=== PATIENT | female | born 1935 | race Caucasian/White ===

== ENCOUNTER → 2017-05-06 13:05 | Outpatient (CLI) | payer MEDICARE, OTHER, SELFPAY ==
--- NOTE | 2017-05-06 13:09 | HPBI_ITS ---
MAMMOGRAPHY - BILATERAL SCREENING REASON FOR EXAM: Female, 82 years old. Routine annual screening examination. PERTINENT HISTORY: Non-contributory. TECHNIQUE: Digital bilateral breast suzie (3D mammographic acquisition) in the CC and MLO projections. 2-D mediolateral oblique (MLO) and craniocaudad (CC) views of both breasts were obtained. CAD: Full Field Digital Mammography with Computer Added Detection was performed. COMPARISON: Comparison is made with prior study dated April 23, 2016 and April 26, 2014. FINDINGS: Breast Composition: There are scattered areas of fibroglandular density. There are no dominant masses or suspicious calcifications. Stable benign-appearing bilateral axillary lymph nodes. No other significant abnormalities are identified. There has been no significant change since the prior study. HPBI/SCREENING MAMM (CAD), BILAT IMPRESSION: Stable bilateral screening mammogram. Yearly follow-up mammogram recommended. (A) ASSESSMENT CATEGORY: BIRADS Category 2: Benign. A letter regarding these results will be sent to the patient by the facility within 30 days. Approximately 10% of breast cancers are not detected by mammography. A normal mammogram should not delay biopsy of a clinically suspicious abnormality. [id number] Electronically Signed: Ronni Snell MD at 8:43 EST Tel [phone], Service support ,
--- NOTE | 2017-05-06 13:09 | HPBD_ITS ---
STUDY: DUAL ENERGY X-RAY ABSORPTIOMETRY / DXA REASON FOR EXAM: Female, 82 years old. The patient is postmenopausal. Loss of height of 3 inches. TECHNIQUE: Bone Mineral Density (BMD) measurements of lumbar spine and bilateral hips were obtained. COMPARISON: Comparison is made with prior examination dated February 07, 2015. FINDINGS: Lumbar Spine (L1-L4): g/cm2 (1.632) / T-score (3.6) / Z-score (5.4) Findings are suggestive of normal bone density with a low fracture risk. Left Femur Total: g/cm2 (0.976) / T-score (-0.2) / Z-score (1.7) Left Femoral Neck: g/cm2 (0.826) / T-score (-1.5) / Z-score (0.6) Right Femur Total: g/cm2 (0.972) / T-score (-0.3) / Z-score (1.7) Right Femoral Neck: g/cm2 (0.848) / T-score (-1.4) / Z-score (0.8) The T-Scores on the most recent prior examination were: Lumbar Spine (L1-L4): There has been worsening of bone density since the previous examination. Left Femur Total: which represents a worsening of 0.3%. Right Femur Total: which represents a worsening of 0.6%. HPBD/Dexa Bone Density Study (HP) IMPRESSION: The patient is considered osteopenic as outlined below according to World Amrik Organization (WHO) criteria with a moderate fracture risk. There has been worsening of bone density since the previous examination. Reference Information: The T-score is the number of standard deviations above or below the standard which is normal for young adults at their peak bone mineral density. The World Health Organization (WHO) interprets the T-scores as follows: Above -1 Normal bone density Between -1 and -2.5 Osteopenia Equal to / or below -2.5 Osteoporosis As a practical clinical guideline, osteopenia may be graded as follows: Mild -1 through -1.5 Moderate -1.6 through -2.0 Severe -2.1 through -2.4 The Z-score is the number of standard deviations above or below age-matched controls. A Z-score of less than -1.5 would be considered abnormal. References: 1. NIH Osteoporosis and Related Bone Diseases http://www.osteo.org 2. International Society for Clinical Densitometry http://www.iscd.org 3. National Osteoporosis Foundation http://www.nof.org Electronically Signed: Ronni Snell MD at 19:56 EST Tel [phone], Service support ,
== END ==
PROVIDERS: Family Provider Internal Medicine; PCP Internal Medicine; Visit Provider Internal Medicine
DX: Z12.31 Encounter for screening mammogram for malignant neoplasm of breast (principal); M85.80 Other specified disorders of bone density and structure, unspecified site; Z78.0 Asymptomatic menopausal state
CPT/HCPCS: 77063; 77067; 77080

== ENCOUNTER → 2017-06-16 06:05 | Outpatient (CLI) | payer MEDICARE, OTHER, SELFPAY ==
--- NOTE | 2017-06-16 18:43 | STRESSREP ---
Stress Test Report Exercise myocardial perfusion stress test. 82-year-old lady with a history of chest pain. Stress protocol: Resting EKG demonstrates sinus rhythm with a rate of 63 bpm normal intervals and noted resting blood pressure is 144/80 mmHg. The patient exercised according to the regular Guillermo protocol for total duration of 4 minutes completing stage I of the Guillermo protocol. The maximum heart rate attained was 131 bpm which was 93% of maximum predicted heart rate the maximum workload attained was 5.8 metabolic equivalents. The patient maintained sinus rhythm throughout the recording with occasional premature ventricular complexes noted patient developed shortness of breath as well as leg discomfort. The peak blood pressure was 200/86 mmHg. Rate pressure product was 22,200. Myocardial perfusion protocol. 11.9 mCi of technetium 99m sestamibi was injected at rest. The patient exercised for total duration of 4 minutes and at peak exercise 36.0 mCi of technetium 99m sestamibi was injected stress images were obtained stress and rest images were reconstructed and compared in the short axis vertical long and horizontal long axis. Gated images were also obtained. Perfusion SPECT analysis. Review of the images demonstrate normal uptake of tracer noted in all areas of the myocardium. The resting images similarly demonstrate normal uptake of tracer noted in all areas of the myocardium. No areas of reversibility are noted suggest ischemia. No previous infarct is noted. Gated SPECT analysis: The gated ejection fraction is noted to be 77%. Conclusion: Normal exercise myocardial perfusion stress test at a low to moderate workload. Preserved ejection fraction. Hypertensive response to exercise.
== END ==
PROVIDERS: Family Provider Internal Medicine; PCP Internal Medicine; Visit Provider Physician Assistant Medical
DX: I25.10 Atherosclerotic heart disease of native coronary artery without angina pectoris (principal); I10 Essential (primary) hypertension; E78.5 Hyperlipidemia, unspecified; R06.00 Dyspnea, unspecified
CPT/HCPCS: 78452; 93017; A9500; A4216

== ENCOUNTER → 2018-04-06 11:16 | Outpatient (CLI) | payer MEDICARE, OTHER, SELFPAY ==
[2018-01-27 10:16] VITALS: BMI 36.8
--- NOTE | 2018-04-06 11:24 | RAD_ITS ---
STUDY: X-RAY - RIGHT KNEE REASON FOR EXAM: Female, 82 years old. Increasing knee pain TECHNIQUE: 4 view(s) of the knee. COMPARISON: None. FINDINGS: There is demineralization of the visualized distal femur. There is demineralization of the tibia and fibula. Normal proximal tibiofibular articulation. There is moderate degenerative arthrosis of the medial femorotibial compartment with moderate joint space narrowing. There is mild degenerative arthrosis of the lateral femorotibial compartment. Normal patellofemoral articulation. The soft tissue structures are unremarkable. RAD/Knee 4 or More Views IMPRESSION: Degenerative arthrosis. Osteopenia. Electronically Signed: Juliet Rodgers MD at 20:02 EST Tel , Service support ,
== END ==
PROVIDERS: Family Provider Internal Medicine; PCP Internal Medicine; Referring Provider Internal Medicine; Visit Provider Internal Medicine
DX: M25.561 Pain in right knee (principal)
CPT/HCPCS: 73564

== ENCOUNTER → 2018-05-15 13:12 | Outpatient (CLI) | payer MEDICARE, OTHER, SELFPAY ==
--- NOTE | 2018-05-15 13:18 | BI_ITS ---
MAMMOGRAPHY - BILATERAL SCREENING REASON FOR EXAM: Female, 83 years old. Routine annual screening examination. PERTINENT HISTORY: Non-contributory. TECHNIQUE: Digital bilateral breast suzie (3D mammographic acquisition) in the CC and MLO projections. 2-D mediolateral oblique (MLO) and craniocaudad (CC) views of both breasts were obtained. CAD: Full Field Digital Mammography with Computer Added Detection was performed. COMPARISON: Comparison is made with prior study of May 06, 2017 and April 23, 2016. FINDINGS: Breast Composition: There are scattered areas of fibroglandular density. There are no dominant masses or suspicious calcifications. Stable benign-appearing bilateral axillary lymph nodes. No other significant abnormalities are identified. There has been no significant change since the prior study. BI/SCREENING MAMM (CAD), BILAT IMPRESSION: Stable bilateral screening mammogram. Yearly follow-up mammogram recommended. (A) ASSESSMENT CATEGORY: BIRADS Category 1: Negative. A letter regarding these results will be sent to the patient by the facility within 30 days. Approximately 10% of breast cancers are not detected by mammography. A normal mammogram should not delay biopsy of a clinically suspicious abnormality. [id number] Electronically Signed: Ronni Snell, at 15:35 EST , Service support ,
== END ==
PROVIDERS: Family Provider Internal Medicine; PCP Internal Medicine; Referring Provider Internal Medicine; Visit Provider Internal Medicine
DX: Z12.31 Encounter for screening mammogram for malignant neoplasm of breast (principal)
CPT/HCPCS: 77063; 77067

== ENCOUNTER → 2019-05-18 13:51 | Outpatient (CLI) | payer MEDICARE, OTHER, SELFPAY ==
[2019-01-26 08:31] VITALS: BMI 35.9
--- NOTE | 2019-05-18 13:56 | BI_ITS ---
MAMMOGRAPHY - BILATERAL SCREENING REASON FOR EXAM: Female, 84 years old. Routine annual screening examination. PERTINENT HISTORY: Non-contributory. TECHNIQUE: Digital bilateral breast veena (3D mammographic acquisition) in the CC and MLO projections. 2-D mediolateral oblique (MLO) and craniocaudad (CC) views of both breasts were obtained. CAD: Full Field Digital Mammography with Computer Added Detection was performed. COMPARISON: Comparison is made with prior examination dated May 15, 2018 and May 06, 2017. FINDINGS: Breast Composition: There are scattered areas of fibroglandular density. There are no dominant masses or suspicious calcifications. Stable asymmetry of breast tissue where more breast tissue is seen in the retroareolar region of the left breast as compared to the right side. Stable scattered calcifications. Stable benign-appearing bilateral axillary. No other significant abnormalities are identified. There has been no significant change since the prior study. BI/SCREEN MAMM (CAD) W/VEENA BILAT IMPRESSION: Stable bilateral screening mammogram. Yearly follow-up mammogram recommended. (A) ASSESSMENT CATEGORY: BIRADS Category 2: Benign. A letter regarding these results will be sent to the patient by the facility within 30 days. Approximately 10% of breast cancers are not detected by mammography. A normal mammogram should not delay biopsy of a clinically suspicious abnormality. [id number] Electronically Signed: Ronni Snell, at 15:39 EST , Service support ,
--- NOTE | 2019-05-18 14:02 | BD_ITS ---
STUDY: DUAL ENERGY X-RAY ABSORPTIOMETRY / DXA REASON FOR EXAM: Female, 84 years old. Age of clay- 54. Pat is 198.7# and 62.25 and quot; a loss of 3.75 and quot; per pat. Past hx of taking HRT. Takes synthroid and a multi-vit. Does not exercise. TECHNIQUE: Bone Mineral Density (BMD) measurements of lumbar spine and bilateral hips were obtained. COMPARISON: Comparison is made with prior study dated May 06, 2017. FINDINGS: Lumbar Spine (L1-L4): g/cm2 (1.281) / T-score (1.0) / Z-score (2.8) Findings are suggestive of normal bone density with a low fracture risk. Left Femur Total: g/cm2 (0.934) / T-score (-0.6) / Z-score (1.5) Left Femoral Neck: g/cm2 (0.783) / T-score (-1.8) / Z-score (0.4) Right Femur Total: g/cm2 (0.944) / T-score (-0.5) / Z-score (1.6) Right Femoral Neck: g/cm2 (0.841) / T-score (-1.4) / Z-score (0.8) The T-Scores on the most recent prior examination were: Lumbar Spine (L1-L4): There has been improvement of bone density since the previous examination. Left Femur Total: which represents a worsening of 4.3%. Right Femur Total: which represents a worsening of 2.9%. BD/Dexa Bone Density Study IMPRESSION: The patient is considered osteopenic as outlined below according to World Amrik Organization (WHO) criteria with a moderate fracture risk. There has been worsening of bone density since the previous examination. Reference Information: The T-score is the number of standard deviations above or below the standard which is normal for young adults at their peak bone mineral density. The World Health Organization (WHO) interprets the T-scores as follows: Above -1 Normal bone density Between -1 and -2.5 Osteopenia Equal to / or below -2.5 Osteoporosis As a practical clinical guideline, osteopenia may be graded as follows: Mild -1 through -1.5 Moderate -1.6 through -2.0 Severe -2.1 through -2.4 The Z-score is the number of standard deviations above or below age-matched controls. A Z-score of less than -1.5 would be considered abnormal. References: 1. NIH Osteoporosis and Related Bone Diseases http://www.osteo.org 2. International Society for Clinical Densitometry http://www.iscd.org 3. National Osteoporosis Foundation http://www.nof.org Electronically Signed: Ronni Snell, at 14:14 EST , Service support ,
== END ==
PROVIDERS: PCP Internal Medicine; Referring Provider Internal Medicine; Visit Provider Internal Medicine
DX: Z12.31 Encounter for screening mammogram for malignant neoplasm of breast (principal); Z78.0 Asymptomatic menopausal state; M85.80 Other specified disorders of bone density and structure, unspecified site
CPT/HCPCS: 77063; 77067; 77080

== ENCOUNTER → 2019-11-16 10:00 | Outpatient (CLI) | payer MEDICARE, OTHER, SELFPAY ==
[2019-08-26 10:47] VITALS: BMI 35.2
--- NOTE | 2019-11-16 10:01 | VDLE_ITS ---
Reason For Study: Swelling Procedure LEFT Exam performed in department. GSV is normal. A preliminary report was called and/or faxed CFV is compressible, spontaneous, phasic, to Alphonso. competent, and demonstrates normal augmentation. FV is compressible, spontaneous, phasic, competent and demonstrates normal augmentation. POP V is compressible, spontaneous, phasic, competent and demonstrates normal augmentation. T/P Trunk is compressible. PTV is compressible. LT PerV is compressible. Interpretation Summary Deep veins of the left lower extremity are patent and compressible segmentally. There is no evidence of left lower extremity deep vein thrombosis. Valvular competence appears intact within the proximal deep venous system on the left . The left great saphenous vein appears patent and compressible segmentally. Ordering Physician: Emy Werner Referring Physician: Emy Werner Performed By: Janny Sewell RVT and Student
== END ==
PROVIDERS: PCP Internal Medicine; Referring Provider Internal Medicine; Visit Provider Internal Medicine
DX: M79.89 Other specified soft tissue disorders (principal)
CPT/HCPCS: 93971

== ENCOUNTER → 2020-08-31 09:56 | Outpatient (CLI) | payer MEDICARE, OTHER, SELFPAY ==
[2019-08-26 10:47] VITALS: BMI 35.2
--- NOTE | 2020-08-31 10:04 | VDLE_ITS ---
Reason For Study: swelling RIGHT LEFT CFV is compressible, spontaneous, phasic, GSV is normal. competent and demonstrates normal CFV is compressible, spontaneous, phasic, augmentation. competent, and demonstrates normal Procedure augmentation. This is a venous duplex using B-mode, color FV is compressible, spontaneous, phasic, flow and spectral Doppler. competent and demonstrates normal Exam performed in department. augmentation. The exam was diagnostic. POP V is compressible, spontaneous, phasic, A preliminary report was called and/or faxed competent and demonstrates normal to Dr. Werner. augmentation. T/P Trunk is compressible. PTV is compressible. LT PerV is compressible. VL/Venous Duplex US, Unilateral Interpretation Summary Deep veins of the left lower extremity are patent and compressible segmentally. There is no evidence of left lower extremity deep vein thrombosis. Valvular competence appears intac t within the proximal deep venous system on the left . The left great saphenous vein appears patent a nd compressible segmentally. Ordering Physician: Emy Werner Performed By: Sebastian Hoffman RVT and Student
== END ==
PROVIDERS: PCP Internal Medicine; Referring Provider Internal Medicine; Visit Provider Internal Medicine
DX: M79.89 Other specified soft tissue disorders (principal)
CPT/HCPCS: 93971

== ENCOUNTER 2021-04-18 12:18 | Outpatient (CLI) | payer MEDICARE, OTHER, SELFPAY ==
[2021-04-24 22:07] LABS: Immunoglobulin A 273 mg/dL (64-422); Immunoglobulin E 14 IU/mL (6-495); Immunoglobulin G 926 mg/dL (586-1602); Immunoglobulin M 95 mg/dL (26-217); PROEL- A/G Ratio 1.1 (0.7-1.7); PROEL- Albumin 3.7 g/dL (2.9-4.4); PROEL- Alpha-1 Globulin 0.2 g/dL (0.0-0.4); PROEL- Beta Globulin 1.1 g/dL (0.7-1.3); PROEL- Globulin, Total 3.3 g/dL (2.2-3.9)
[2021-04-25 13:41] LABS: Thyroid Peroxidase AB < 8 IU/mL (0-34)
== END 2021-04-18 23:59 | disposition short-term general hospital (02) ==
LOC: MTLAB 12:19
PROVIDERS: PCP Internal Medicine; Referring Provider Dermatology; Visit Provider Dermatology
DX: L98.5 Mucinosis of the skin (principal); L40.8 Other psoriasis
CPT/HCPCS: 36415; 82784; 82785; 84165; 86376

== ENCOUNTER 2021-05-19 09:39 | Outpatient (CLI) | payer MEDICARE, OTHER, SELFPAY ==
--- NOTE | 2021-05-19 09:42 | CT_ITS ---
INDICATION: SINUSITIS EXAMINATION: CT SINUSES - CT Sinuses W/O Contrast Injection TECHNIQUE: Helically acquired images were obtained of the paranasal sinuses. A radiation dose optimization technique was used for this scan. IV Contrast dosage and agent: None. COMPARISON: None. FINDINGS: FRONTAL SINUSES AND RECESSES: Clear. ETHMOID AIR CELLS: Clear. MAXILLARY SINUSES: Minimal mucosal thickening right maxillary sinus inferior wall. Left maxillary sinus is normal. OSTIOMEATAL COMPLEXES: Clear and normally formed. SPHENOID SINUSES: Subcentimeter, convex soft tissue density suggesting mucous retention cyst right sphenoid sinus. Sphenoid sinuses are otherwise clear. SPHENOETHMOIDAL RECESSES: Clear. ANCILLARY FINDINGS: NASAL TURBINATES: Unremarkable. NASAL SEPTUM: Midline. ORBITS: Unremarkable. VISUALIZED DENTITION: No periodontal osseous erosion. ANTERIOR CRANIAL FOSSA: Unremarkable. Atherosclerosis cavernous carotid arteries and left intracranial vertebral artery. Moderate facet arthropathy proximal cervical spine bilaterally. CT/Sinus/Facial Bone IMPRESSION: Minimal right maxillary sinus mucosal thickening and small mucous retention cyst right sphenoid sinus. Nonobstructive paranasal sinus anatomy without acute sinusitis. Electronically Signed: Samuel Wong DO at 20:40 EST ,
== END 2021-05-19 23:59 | disposition home or self-care (01) ==
LOC: CT 09:39
PROVIDERS: PCP Internal Medicine; Visit Provider Internal Medicine
DX: J32.9 Chronic sinusitis, unspecified (principal)
CPT/HCPCS: 70486

== ENCOUNTER → 2021-08-29 | Outpatient (CLI) | payer MEDICARE, OTHER, SELFPAY ==
--- NOTE | 2021-08-29 09:03 | BI_ITS ---
MAMMOGRAPHY - BILATERAL SCREENING REASON FOR EXAM: Female, 86 years old. Routine annual screening examination. PERTINENT HISTORY: Non-contributory. TECHNIQUE: Digital bilateral breast veena (3D mammographic acquisition) in the CC and MLO projections. 2-D mediolateral oblique (MLO) and craniocaudad (CC) views of both breasts were obtained. CAD: Full Field Digital Mammography with Computer Added Detection was performed. COMPARISON: Comparison is made with prior study dated 05/18/2019 and 05/15/2018. FINDINGS: Breast Composition: There are scattered areas of fibroglandular density. There are no dominant masses or suspicious calcifications. Stable asymmetry of breast tissue where more breast tissue is seen in the retroareolar region of the left breast as compared to the right side. Stable scattered calcifications in both breasts. No other significant abnormalities are identified. There has been no significant change since the prior study. BI/SCRN MAMM (CAD)W/VEENA BILAT IMPRESSION: Stable bilateral screening mammogram. Yearly follow-up mammogram recommended. (A) ASSESSMENT CATEGORY: BIRADS Category 2: Benign. A letter regarding these results will be sent to the patient by the facility within 30 days. Approximately 10% of breast cancers are not detected by mammography. A normal mammogram should not delay biopsy of a clinically suspicious abnormality. [id number] Electronically Signed: Ronni Snell MD at 10:39 EDT ,
--- NOTE | 2021-08-29 09:07 | BD_ITS ---
STUDY: DUAL ENERGY X-RAY ABSORPTIOMETRY / DXA REASON FOR EXAM: Female, 86 years old. M85.89. Patient is postmenopausal. TECHNIQUE: Bone Mineral Density (BMD) measurements of lumbar spine and bilateral hips were obtained. COMPARISON: Comparison is made with prior study of 05/18/2019. FINDINGS: Lumbar Spine (L1-L4): g/cm2 (1.199) / T-score (1.4) / Z-score (4.2) Findings are suggestive of normal bone density with a low fracture risk. Left Femur Total: g/cm2 (0.828) / T-score (-0.9) / Z-score (1.4) Left Femoral Neck: g/cm2 (0.576) / T-score (-2.5) / Z-score (0.0) Right Femur Total: g/cm2 (0.841) / T-score (-0.8) / Z-score (1.5) Right Femoral Neck: g/cm2 (0.700) / T-score (-1.3) / Z-score (1.1) The T-Scores on the most recent prior examination were: Lumbar Spine (L1-L4): There has been worsening of bone density since the previous examination. Left Femur Total: which represents a worsening of 4.8%. Right Femur Total: which represents a worsening of 4.8%. BD/Dexa Bone Density Study IMPRESSION: The patient is considered osteopenic as outlined below according to World Amrik Organization (WHO) criteria with a high fracture risk. There has been worsening of bone density since the previous examination. Reference Information: The T-score is the number of standard deviations above or below the standard which is normal for young adults at their peak bone mineral density. The World Health Organization (WHO) interprets the T-scores as follows: Above -1 Normal bone density Between -1 and -2.5 Osteopenia Equal to / or below -2.5 Osteoporosis As a practical clinical guideline, osteopenia may be graded as follows: Mild -1 through -1.5 Moderate -1.6 through -2.0 Severe -2.1 through -2.4 The Z-score is the number of standard deviations above or below age-matched controls. A Z-score of less than -1.5 would be considered abnormal. References: 1. NIH Osteoporosis and Related Bone Diseases www osteo.org 2. International Society for Clinical Densitometry www iscd.org 3. National Osteoporosis Foundation www nof.org Electronically Signed: Ronni Snell MD at 10:51 EDT ,
--- NOTE | 2021-08-29 09:30 | RAD_ITS ---
STUDY: X-RAY CHEST REASON FOR EXAM: Female, 86 years old. Fever and cough TECHNIQUE: PA and lateral views of the chest. COMPARISON: 07/20/2021 FINDINGS: Lungs are expanded with little significant interval change since the previous study. Since there is no interval change, findings are more suggestive of lingular scarring rather than superimposed infiltrate or atelectasis. No demonstrated effusion. The right lung is clear. Normal size heart. Normal mediastinum and emely. Normal visualized pulmonary arteries. Normal visualized aortic arch and descending thoracic aorta. There are diffuse degenerative changes of the visualized thoracic spine. There is degenerative osteoarthritis of the bilateral shoulders. There is no demonstrated abnormality of the visualized soft tissue structures of the upper abdomen. RAD/Chest PA and Lateral IMPRESSION: Likely lingular scarring rather than a superimposed infiltrate or atelectasis. There has been no interval change since the previous study. Electronically Signed: Toni Segura MD at 15:09 EDT ,
== END | disposition home or self-care (01) ==
PROVIDERS: PCP Internal Medicine; Referring Provider Internal Medicine; Visit Provider Internal Medicine
DX: Z12.31 Encounter for screening mammogram for malignant neoplasm of breast (principal); J18.9 Pneumonia, unspecified organism; M85.80 Other specified disorders of bone density and structure, unspecified site; Z78.0 Asymptomatic menopausal state
CPT/HCPCS: 71046; 77063; 77067; 77080

== ENCOUNTER → 2021-09-24 | Outpatient (CLI) | payer MEDICARE, OTHER, SELFPAY ==
--- NOTE | 2021-09-24 09:27 | CT_ITS ---
STUDY: CT CHEST WITHOUT CONTRAST REASON FOR EXAM: Female, 86 years old. COUGH RADIATION DOSAGE (If Supplied By Facility): CTDIvol = ( 12.71 ) mGy, DLP = ( 460.36 ) mGycm TECHNIQUE: Transaxial imaging was performed without the administration of intravenous contrast material. Multiplanar coronal and sagittal images were reformatted. Individualized dose optimization techniques were used for this CT. COMPARISON: Comparison is made with prior chest radiograph dated 08/29/2021. FINDINGS: CHEST Small bilateral benign-appearing axillary lymph nodes. There is a 1.2 cm x 1.8 cm mildly spiculated nodule in the posterior segment of the right lower lobe. Correlation with a PET scan is recommended. Mild scarring in the lingular segment of the left upper lobe. There is a 1.6 cm bulla in the anterior aspect of the left lower lobe. There is no demonstrated pleural abnormality. There are calcifications of the coronary arteries. Normal mediastinum. Normal hilar regions. Normal unenhanced pulmonary arteries. There is atherosclerotic calcification of the aortic arch with tortuosity and elongation of the aortic arch and descending thoracic aorta. There are multi-level degenerative changes of the thoracic spine. 50% loss of height of the L1 vertebrae. Large hiatal hernia. Scattered cysts in the liver. The largest cyst is in the posterior aspect of the dome of the liver measuring 3 cm x 3.[address]/Chest without Contrast IMPRESSION: 1.2 cm x 1.8 cm mildly spiculated nodule in the posterior segment of the right lower lobe. Correlation with a PET scan is recommended. Hepatic cysts. Large hiatal hernia. Electronically Signed: Ronni Snell MD at 12:41 EDT ,
== END | disposition home or self-care (01) ==
LOC: CT 08:49
PROVIDERS: PCP Internal Medicine; Referring Provider Internal Medicine; Visit Provider Internal Medicine
DX: R91.8 Other nonspecific abnormal finding of lung field (principal)
CPT/HCPCS: 71250

== ENCOUNTER → 2021-10-03 | Outpatient (CLI) | payer MEDICARE, OTHER, SELFPAY ==
--- NOTE | 2021-10-03 15:15 | PET_ITS ---
PROCEDURE: WHOLE BODY PET/CT SCAN, MID SKULL TO MID THIGH REASON FOR EXAM: Solitary pulmonary nodule COMPARISON EXAMINATION: 09/24/2021. TECHNIQUE: Following the intravenous administration of 12.45 mCi of F-18 FDG, multiplanar imaging acquisitions of the neck, chest, abdomen/pelvis to the mid thigh, obtained at 1 hour post radiopharmaceutical administration. Interpretation is with co-registeration of similar anatomic distribution of CT. Findings: Normal and physiologic distribution of radioisotope identified in the expected intensity of the hepatic and splenic parenchyma, urinary tract and gastrointestinal structures. There is gross anatomic distribution of the intracranial contents. INDEX LESION SIZE SUV INTERPRETATION: 1. 1.4 x 1.8 cm noncalcified nodule in the right posterior lower lobe on image 251 series 201 with abnormal FDG activity (SUV 5.5) correlates to nodule evident on recent chest CT. 2. Focal (1 cm) activity (SUV 5.7) of the proximal descending colon anterior (nondependent) wall is seen on image 149 of series 301, image 93 coronal fused images, and image [address] portion of the exam: The lungs are normal. There is no demonstrated pleural abnormality. Normal heart and pericardium. There are calcifications of the coronary arteries. Normal mediastinum. Normal hilar regions. Normal unenhanced pulmonary arteries. There is atherosclerotic calcification of the aortic arch with tortuosity and elongation of the aortic arch and descending thoracic aorta. Low density (photopenic) lesions of the liver likely represent cysts or hemangiomata. No required imaging follow-up needed given high likelihood of benign nature. Normal gallbladder and extrahepatic biliary system. Normal spleen. Normal pancreas. Normal bilateral adrenal glands. Simple cyst of the anterior right kidney. No required imaging follow-up needed given high likelihood of benign nature. No hydronephrosis. Moderate size hiatal hernia. Normal small intestine. There are multiple colonic diverticula consistent with diverticulosis. There is non-visualization of the appendix. There is diffuse atherosclerotic calcification of the abdominal aorta, without a demonstrated aneurysm. Normal inferior vena cava. Normal urinary bladder. Degenerative changes of the spine. No lytic or sclerotic bone lesions. PET/PET/CT Tumor Base -Thigh Init IMPRESSION: 1. ABNORMAL EXAMINATION. Right lower lobe nodule meets criteria for viable neoplasm. No demonstrated metastasis. 2. 1 cm focal FDG activity (higher than remainder colonic activity) in the anterior ascending colon wall. May represent adherent stool/physiologic activity versus focal inflammation, however, a focal neoplasm is possible. Colonoscopy recommended. 3. Chronic changes, as detailed above. Electronically Signed: Carlos Alberto Up MD ([place]) at 12:12 EDT ,
== END | disposition home or self-care (01) ==
LOC: ONC 15:08
PROVIDERS: PCP Internal Medicine; Referring Provider Internal Medicine; Visit Provider Internal Medicine
DX: R91.1 Solitary pulmonary nodule (principal)
CPT/HCPCS: 78815; A9552

== ENCOUNTER 2021-11-06 11:39 | Outpatient (CLI) | payer MEDICARE, OTHER, SELFPAY ==
[2021-11-06 15:36] LABS: Anion Gap 6 (5-15); BUN 11 mg/dL (7-18); Chloride 106 mmol/L (98-107); Creatinine, Serum 0.82 mg/dL (0.55-1.02); EST Glomerular Filtration Rate 70 mL/min (>60); Est Glom Filt Rate - Afr Amer 85 mL/min (>60); Sodium Level 139 mmol/L (136-145)
[2021-11-06 15:37] LABS: Prothrombin Time (Protime)PT. 12.9 SECONDS (11.7-14.9)
[2021-11-06 15:38] LABS: Partial Thromboplast Time 28.9 Seconds (24.1-36.2)
[2021-11-09 17:07] LABS: QNTFERON TB Mitogen Value > 10.00 IU/mL (.); QNTFERON TB Nil Value 0.02 IU/mL (.); QNTFERON TB1+ Ag Value 0.02 IU/mL (.); QNTFERON TB2+ Ag Value 0.02 IU/mL (.)
[2021-11-10 07:44] LABS: QNTIFERON TB Positive Criteria Negative (Negative)
== END 2021-11-06 23:59 | disposition home or self-care (01) ==
LOC: MTLAB 11:41
PROVIDERS: PCP Internal Medicine; Referring Provider Internal Medicine Pulmonary Disease; Visit Provider Internal Medicine Pulmonary Disease
DX: R91.1 Solitary pulmonary nodule (principal)
CPT/HCPCS: 36415; 80051; 82565; 84520; 85610; 85730; 86480

== ENCOUNTER → 2021-12-10 | Outpatient (CLI) | payer MEDICARE, OTHER, SELFPAY ==
[2021-12-10] VITALS (13 sets, daily range): BP systolic 103–140; BP diastolic 45–102; PULSE 56–72; RESP 12–25; TEMP 36.5; O2SAT 94–100; BMI 31.3
--- NOTE | 2021-12-10 | ASPIGT_PTH ---
PATIENT: KATE CRENSHAW LOC: [place] U#:[id number] AGE/SX: 86/F ROOM: RE12/10/[address]: Dr. Eric Moore MD : [id number] BED: DIS: 12/10/2021 SPEC #: [id number] RECD: 12/10/21 10:30 STATUS: ASHUTOSH REEctor #: [id number] THEODORA: 12/10/21 00:[address]: Eric Moore V DEPT: SURGICAL PATHOLOGY RECD BY: Svetlana Lozano ENTERED: 12/10/21 12:34 SP TYPE: ASP RAD OTHR DR: Dr. Emy Werner MD Tissues: Lung, NOS Procedures: FNA Specimen Adequacy Special Stain Group II Surgery Specimen Level IV Imprint (control) HEADER OPERATION: Right lung mass, CT-guided core biopsy PRE-OP DIAGNOSIS: Right lung mass TISSUE SUBMITTED: Right lung mass 20-gauge x4 MICROSCOPIC DIAGNOSIS Right lung mass, CT-guided core biopsy: Fragments of lung parenchymal tissue with focal pneumocyte-2 hyperplasia. Negative for malignancy. See comment. NIKOLAS:rikki 12/11/2021 COMMENT The specimen is evaluated at the time of biopsy by Dr. Overton. Immediate Evaluation = Mildly atypical cells noted. Correlation with clinical, radiologic findings and appropriate follow up are necessary. Re-biopsy is suggested if clinically indicated. Case has been reviewed in consultation with Dr. Espinoza who concurs with the above diagnosis. IDC:AM MICROSCOPIC DESCRIPTION Slides are reviewed. GROSS DESCRIPTION Received in fixative is one container labeled with the patient's name and designated right lung, CT-guided core biopsy. The specimen consists of multiple elongated fragments of vitale soft tissue that in aggregate measure 1.5 x 0.1 x 0.1 cm. The specimen is totally submitted in one cassette. Two touch imprints are prepared at the time of core biopsy. / NIKOLAS:rikki 12/10/2021 TC:5 CPT: 91352, 25348
[2021-12-10 08:52] LABS: Platelet Count 279 K/mm3 (150-450)
[2021-12-10 09:08] LABS: International Normalized Ratio 1.1; Partial Thromboplast Time 30.1 Seconds (24.1-36.2); Prothrombin Time (Protime)PT. 13.4 SECONDS (11.7-14.9)
[2021-12-10] MEDS: Midazolam 2 MG/2 ML Syringe IV (10:05)
--- NOTE | 2021-12-10 10:05 | CT_ITS ---
PROCEDURE: CT GUIDED CORE NEEDLE BIOPSY OF A right lower lobe LUNG LESION INDICATION: Female, 86 years old. R LOWER LUNG LOBE PHYSICIAN: Dr. HOWARD Christiansen CONSENT: Written informed consent was obtained having explained the risks, benefits and alternatives in detail with the patient who accepted the risks and agreed to proceed. Laboratory review and clinical assessment was performed. CONSCIOUS SEDATION PROTOCOL: The Drugs used were: 2 mg Versed, IV., and 50 mcg Fentanyl, IV. The sedation time was: 25 minutes. Conscious sedation was started at 10:05 AM and terminated at 10:30 AM. The conscious sedation protocol was independently monitored. RADIATION DOSAGE (If Supplied By Facility): CTDIvol = ( 18.8 ) mGy, DLP = ( 671.24 ) mGycm Individualized dose optimization techniques were used for this CT. TECHNIQUE: The patient was placed in the prone position. A noncontrast CT was performed to localize the lesion in the posterior medial segment of the right lower lobe . The skin surface was prepped and draped in a sterile fashion. 1% lidocaine was used for local anesthesia. Using CT guidance, a 20-gauge coaxial biopsy device was advanced to the periphery of the lesion. A total of 4 core specimens were obtained. The specimens were placed in a formalin solution. A post procedure CT demonstrated no adverse sequelae or pneumothorax. The patient tolerated the procedure well without adverse event. A negative biopsy does not exclude malignancy. Further imaging or clinical followup based on patient condition and degree of clinical suspicion for malignancy. Suggest rebiopsy, if biopsy results do not match with clinical scenario. CT/Biopsy/Inj or Needle Placement IMPRESSION: 1. CT directed core needle biopsy of the right lower lobe pulmonary nodule using CT image guidance with image documentation as described. Pathology results are pending. 2. Conscious Sedation protocol utilized with independent monitoring. Electronically Signed: Ronni Snell MD at 10:52 EDT ,
[2021-12-10] MEDS: fentaNYL 100 MCG/2 ML Ampul IV ×2 (10:08→10:22)
--- NOTE | 2021-12-10 10:15 | RAD_ITS ---
STUDY: X-RAY CHEST REASON FOR EXAM: Female, 86 years old. Pneumothorax -- Immediately post lung biopsy TECHNIQUE: AP inspiration and expiration views. COMPARISON: Comparison is made with prior study of 08/29/2021. FINDINGS: There is no evidence of pneumothorax following the right lung biopsy. RAD/Chest Insp/Exp 2 View IMPRESSION: No evidence of pneumothorax following the immediate postright lung biopsy. Electronically Signed: Ronni Snell MD at 10:50 EDT ,
[2021-12-10] MEDS: Lidocaine 2% (10 ml mdv) 10 ML Vial INFILT (10:20)
--- NOTE | 2021-12-10 12:45 | RAD_ITS ---
STUDY: X-RAY CHEST REASON FOR EXAM: Female, 86 years old. Pneumothorax -- 2 hours post lung biopsy TECHNIQUE: AP inspiration and expiration views. COMPARISON: Comparison is made with prior study done earlier in the day. FINDINGS: The patient is status post right lung biopsy. No evidence of pneumothorax on the delayed images. RAD/Chest Insp/Exp 2 View IMPRESSION: No evidence of pneumothorax. Electronically Signed: Ronni Snell MD at 13:35 EDT ,
== END | disposition home or self-care (01) ==
PROVIDERS: PCP Internal Medicine; Referring Provider Internal Medicine Pulmonary Disease; Visit Provider Internal Medicine Pulmonary Disease
DX: R91.1 Solitary pulmonary nodule (principal)
CPT/HCPCS: 32408; 36415; 71046; 77012; 85049; 85610; 85730; 88172; 88305; 88313; 99156; J7050; A4216; C2613

== ENCOUNTER → 2022-05-09 | Outpatient (CLI) | payer MEDICARE, OTHER, SELFPAY ==
--- NOTE | 2022-05-09 12:31 | CT_ITS ---
STUDY: CT CHEST WITHOUT CONTRAST REASON FOR EXAM: Female, 87 years old. LUNG NODULE RADIATION DOSAGE (If Supplied By Facility): CTDIvol = ( 10.21 ) mGy, DLP = ( 347.66 ) mGycm TECHNIQUE: Transaxial imaging was performed without the administration of intravenous contrast material. Multiplanar coronal and sagittal images were reformatted. Individualized dose optimization techniques were used for this CT. COMPARISON: Comparison is made with prior study dated 09/24/2021. FINDINGS: CHEST Stable small bilateral benign appearing axillary lymph nodes. Stable 1.6 cm x 1.5 cm satisfactory nodule in the posterior segment of the right lower lobe abutting the pleural surface. Stable mild degree of scarring in the lingular segment of the left upper lobe. Stable 1.6 cm bulla in the anterior aspect of the left lower lobe abutting the major fissure. There is no demonstrated pleural abnormality. There are calcifications of the coronary arteries. Normal mediastinum. Normal hilar regions. Normal unenhanced pulmonary arteries. There is atherosclerotic calcification of the aortic arch with tortuosity and elongation of the aortic arch and descending thoracic aorta. There are multi-level degenerative changes of the thoracic spine. 50% loss of height of the L1 vertebrae. Large hiatal hernia. Stable 3 cm x 3 cm lobulated cyst in the posterior aspect of the dome of the liver. CT/Chest without Contrast IMPRESSION: Stable examination. Electronically Signed: Ronni Snell MD at 14:08 EST ,
== END | disposition home or self-care (01) ==
PROVIDERS: PCP Internal Medicine; Visit Provider Internal Medicine Pulmonary Disease
DX: R91.1 Solitary pulmonary nodule (principal)
CPT/HCPCS: 71250

== ENCOUNTER → 2022-09-02 | Outpatient (CLI) | payer MEDICARE, OTHER, SELFPAY ==
--- NOTE | 2022-09-02 10:30 | BI_ITS ---
MAMMOGRAPHY - BILATERAL SCREENING REASON FOR EXAM: Female, 87 years old. Routine annual screening examination. PERTINENT HISTORY: Non-contributory. TECHNIQUE: Digital bilateral breast veena (3D mammographic acquisition) in the CC and MLO projections. 2-D mediolateral oblique (MLO) and craniocaudad (CC) views of both breasts were obtained. CAD: Full Field Digital Mammography with Computer Added Detection was performed. COMPARISON: Mammogram from 09/02/2022, 08/29/2021. FINDINGS: Breast Composition: There are scattered areas of fibroglandular density. There are no dominant masses or suspicious calcifications. Stable benign-appearing bilateral breast calcifications. No other significant abnormalities are identified. There has been no significant change since the prior study. BI/SCRN MAMM (CAD)W/VEENA BILAT IMPRESSION: Stable bilateral screening mammogram. Yearly follow-up mammogram recommended. (A) ASSESSMENT CATEGORY: BIRADS Category 2: Benign. A letter regarding these results will be sent to the patient by the facility within 30 days. Approximately 10% of breast cancers are not detected by mammography. A normal mammogram should not delay biopsy of a clinically suspicious abnormality. Electronically Signed: Guanaco Hough DO at 10:17 EDT ,
--- NOTE | 2022-09-02 14:18 | CT_ITS ---
EXAM: CT CHEST WITHOUT INTRAVENOUS CONTRAST CLINICAL INDICATION: Lung nodule, solitary TECHNIQUE: Helically acquired images were obtained of the chest without intravenous contrast. This CT exam was performed using one or more of the following dose reduction techniques: automated exposure control, adjustment of the mA and/or kV according to patient size, and/or use of iterative reconstruction technique. RADIATION DOSE: CTDIvol = 12.5 mGy, DLP = 440.28 mGy-cm COMPARISON: May 09, 2022. The prior exam was compared to September 24, 2021. FINDINGS: LUNGS AND PLEURAL SPACES: Stable size and configuration of nodule in the right lung base with gas in its anterior component thought to be in airway, encasing and airway branch, overall size roughly 1.6 cm x 1.5 cm by 1.4 cm, it was 1.6 cm x 1.6 cm x 1.4 cm. Mild bands of atelectasis and minimal groundglass opacity at the lung bases appears stable. No pleural effusion or thickening. HEART: See below. MEDIASTINUM: Stable large hiatal hernia, hernia roughly 1/2 of the stomach. No mediastinal or hilar adenopathy. Esophagus is unremarkable. THYROID: Unremarkable. No thyroid lesions. BONES/JOINTS: Mild degenerative spine changes. Stable compression deformity of L1 anterior body. No suspicious lytic or blastic abnormality. SOFT TISSUES: Breast are not fully included. VASCULATURE: Mild peripheral calcification of the aorta. Mild calcifications at the aortic valve leaflets. At least moderate calcification some coronary arteries, there is suspected coronary artery stent bilaterally. Thoracic aorta is non-dilated. LIVER: Cluster of 3 adjacent cysts in the posterior liver appears similar, overall confluent AP diameter roughly 3.6 cm. GALLBLADDER AND BILE DUCTS: Cholecystectomy clip is partially included. STOMACH AND BOWEL: Mild diverticulosis of the splenic flexure. CT/Chest without Contrast IMPRESSION: Stable exam. Stability of right basilar nodule for over 11 months. FOLLOW UP RECOMMENDATIONS: For low-risk or high-risk patients consider a follow-up chest CT at 12-18 months. If unchanged, no further follow-up. Electronically Signed: Carol Frank MD at 8:36 EDT ,
== END | disposition home or self-care (01) ==
LOC: OPBI 10:29
PROVIDERS: PCP Internal Medicine; Referring Provider Internal Medicine; Visit Provider Internal Medicine
DX: Z12.31 Encounter for screening mammogram for malignant neoplasm of breast (principal); R91.1 Solitary pulmonary nodule
CPT/HCPCS: 71250; 77063; 77067

== ENCOUNTER → 2023-01-02 | Outpatient (CLI) | payer MEDICARE, OTHER, SELFPAY ==
--- NOTE | 2023-01-02 09:52 | MRI_ITS ---
STUDY: MRI LUMBAR SPINE WITHOUT CONTRAST REASON FOR EXAM: Female, 87 years old. Degeneration of intervertebral disc, low back pain, difficulty walking TECHNIQUE: Standardized fat and water weighted pulse sequences were obtained in the sagittal and axial planes. COMPARISON: Lumbar spine radiographs 12/03/2021. FINDINGS: T10-T11: (Sagittal only). Normal endplates. Pronounced disc space height narrowing. Mild ventral extradural defect due to posterior bulging annulus. Normal central canal. Moderately pronounced stenosis of the left intervertebral neural foramen. Mild stenosis of the right intervertebral neural foramen. T11-T12: (Sagittal only). Normal endplates. Mild disc space height narrowing. Tiny ventral extradural defect is posterior bulging annulus. Normal central canal and bilateral intervertebral neural foramina. T12-L1: Normal T12 inferior endplate. Moderate old anterior wedge compression fracture of the upper L1 vertebral body causing increased anterior disc space height. Mild degenerative anterolisthesis of T12 on L1. Prominent dorsal epidural lipomatosis. Moderate asymmetric degenerative facet arthropathy. Moderate central canal stenosis with an AP canal diameter of 8 mm. Normal bilateral lateral recesses. Mild posterior bulging annulus. Mild stenosis of the bilateral intervertebral neural foramina. Normal lumbar lordosis. Mild levoscoliosis of the lumbar spine. Normal conus medullaris that terminates at the L1-L2 disc space level. L1-2: Normal endplates. Moderate disc space height narrowing. Mild degenerative anterolisthesis of L1 on L2. Prominent posterior bulging annulus. Prominent dorsal epidural lipomatosis. Mild central canal stenosis with an AP canal diameter of 9 mm. Normal bilateral lateral recesses. Mild stenosis of the bilateral intervertebral neural foramina. L2-3: Normal endplates. Pronounced disc space height narrowing. Mild asymmetric degenerative facet arthropathy. Prominent midline ventral axial defect is posterior disc protrusion. Prominent dorsal epidural lipomatosis. Moderately pronounced central canal stenosis with an AP canal diameter of 5 mm. Normal bilateral lateral recesses. Moderate stenosis of the right intervertebral neural foramen with osteophytic encroachment coming from the right L3 superior articular facet. Mild stenosis of the left intervertebral neural foramen. L3-4: Mild irregularity of the vertebral endplates. Prominent Schmorl''s node in the anterior L3 inferior endplate. Pronounced disc space height narrowing. Mild degenerative retrolisthesis of L3 on L4. Prominent right posterior marginal spurs. Mild asymmetric degenerative facet arthropathy. Prominent dorsal epidural lipomatosis. Mild central canal stenosis with an AP canal diameter of 9.5 mm. Mild stenosis of the right lateral recess. Normal left lateral recess. Moderate stenosis of the right intervertebral neural foramen. Mild stenosis of the left intervertebral neural foramen. L4-5: Normal endplates. Pronounced disc space height narrowing. Prominent ventral epidural defect due to posterior marginal spurs. Mild asymmetric degenerative facet arthropathy. Pronounced central canal stenosis with an AP canal diameter of 4.5 mm. Moderate stenosis of left lateral recess. Normal right lateral recess. Moderate stenosis of the right intervertebral neural foramen. Mild to moderate stenosis of the left intervertebral neural foramen. L5-S1: Normal endplates. Mild disc space height narrowing. Grade 1 degenerative retrolisthesis of L5 on S1. Mild asymmetric degenerative facet arthropathy. Mild central canal stenosis with an AP canal diameter of 10 mm. Normal bilateral lateral recesses. Moderate stenosis of the bilateral intervertebral neural foramina. Normal visualized sacral ala. Normal visualized paraspinous soft tissue structures. MRI/Spine Lumbar (Routine) IMPRESSION: 1. Pronounced central canal stenosis at L4-L5 disc space level with an AP canal diameter of 4.5 mm, moderate stenosis of the left lateral recess and moderate stenosis of the right intervertebral neural foramen. 2. Moderately pronounced central canal stenosis at L2-L3 disc space level with an AP canal diameter of 5 mm, moderate stenosis of the right intervertebral neural foramen with osteophytic encroachment coming from the right L3 superior articular facet and prominent posterior midline disc protrusion. 3. Mild central canal stenosis at L1-L2 disc space level with an AP canal diameter of 9 mm, prominent posterior bulging annulus and mild degenerative anterolisthesis of L1 on L2. 4. Grade 1 degenerative retrolisthesis of L5 on S1, mild central canal stenosis with an AP canal diameter of 10 mm and moderate stenosis of the bilateral intervertebral neural foramina. 5. Moderate old anterior wedge compression fracture of the upper L1 vertebral body. Electronically Signed: Lewis Davis MD at 16:39 EDT ,
== END | disposition home or self-care (01) ==
LOC: MRI 09:50
PROVIDERS: PCP Internal Medicine; Referring Provider Internal Medicine; Visit Provider Internal Medicine
DX: M51.35 Other intervertebral disc degeneration, thoracolumbar region (principal)
CPT/HCPCS: 72148

== ENCOUNTER → 2023-02-20 | Outpatient (CLI) | payer MEDICARE, OTHER, SELFPAY ==
--- NOTE | 2023-02-20 09:59 | ECHOCS_ITS ---
Reason For Study: Aortic Valve Disorder Procedure This was a 2D Doppler, Color Flow transthoracic echocardiogram. The study was technically difficult. Contrast injection was performed. Exam performed in department. Left Ventricle Normal LV size. Mild concentric left ventricular hypertrophy. The estimated ejection fraction is 70 %. Stage 2 diastolic dysfunction. No regional wall motion abnormalities noted. Right Ventricle Normal RV size. Normal systolic function. Atria There is mild biatrial dilatation. Mitral Valve The mitral valve is structurally normal. No prolapse or stenosis seen. Mild (1+) mitral valve insufficiency. Tricuspid Valve Normal tricuspid valve. Mild (1+) tricuspid valve insufficiency. Right ventricular systolic pressure estimated to be 40 mmHg. Aortic Valve Trisinus/trileaflet aortic valve. Mild aortic stenosis. Mild (1+) aortic valve insufficiency. Pulmonic Valve Normal pulmonic valve. Mild (1+) pulmonic valve insufficiency. Great Vessels Normal aortic root. Pericardium/Pleural No pericardial effusion. Medication 22 gauge I.V. with prn adaptor inserted into right arm. Diluted definity 1.5ml given slow IV push to enhance endocardial definition. MMode/2D Measurements & Calculations LVIDd: 4.6 cm IVSd: 1.1 cm LVOT diam: 2.0 cm LVIDs: 2.6 cm LVPWd: 1.2 cm RVDd: 4.2 cm FS: 44.1 % LVOT area: 3.3 cm2 Ao root diam: 3.3 cm LAV(MOD-bp): 73.2 ml LVAd ap4: 27.1 cm2 LA dimension: 3.4 cm LAV(MOD-bp) Indexed: 39.8 ml/m2 LVLd ap4: 6.7 cm LAV(MOD-sp2): 59.5 ml EDV(MOD-sp4): 88.7 ml LAV(MOD-sp4): 87.2 ml EDV(sp4-el): 92.5 ml LVAs ap4: 11.8 cm2 LVLs ap4: 4.9 cm ESV(MOD-sp4): 22.8 ml ESV(sp4-el): 23.8 ml EF(MOD-sp4): 74.3 % EF(sp4-el): 74.2 % SV(MOD-sp4): 65.9 ml SV(sp4-el): 68.7 ml LA A4 area: 26.0 cm2 RA A4 area: 21.1 cm2 TAPSE: 1.9 cm Time Measurements MV dec time: 0.22 sec Doppler Measurements & Calculations MV E max javier: 72.1 cm/sec Lat Peak E' Javier: 6.0 cm/sec Med Peak E' Javier: 6.7 cm/sec MV A max javier: 90.2 cm/sec E/E' lat: 12.0 E/E' med: 10.7 MV E/A: 0.80 MV V2 max: 95.9 cm/sec MV P1/2t max javier: 84.7 cm/sec Ao V2 max: 235.2 cm/sec MV max P.7 mmHg MV P1/2t: 79.9 msec Ao max P.1 mmHg MV V2 mean: 39.5 cm/sec MV dec slope: 310.3 cm/sec2 Ao V2 mean: 148.2 cm/sec MV mean P.84 mmHg MVA(P1/2t): 2.8 cm2 Ao mean P.2 mmHg MV V2 VTI: 33.3 cm Ao V2 VTI: 50.8 cm MVA(VTI): 3.3 cm2 AV (velocity ratio): 0.65 MARISSA(I,D): 2.1 cm2 MARISSA(V,D): 1.8 cm2 AI max javier: 388.0 cm/sec LV V1 max: 132.0 cm/sec SV(LVOT): 108.8 ml AI max P.9 mmHg LV V1 max P.0 mmHg LV V1 mean P.2 mmHg AI dec slope: 166.9 cm/sec2 LV V1 mean: 98.4 cm/sec AI P1/2t: 681.0 msec LV V1 VTI: 33.2 cm PA V2 max: 91.5 cm/sec TR max javier: 302.1 cm/sec TR max P.5 mmHg ECHO/Echo Complete W/ Contrast Interpretation Summary The estimated ejection fraction is 70 %. Stage 2 diastolic dysfunction. Mild concentric left ventricular hypertrophy. There is mild biatrial dilatation. Mild (1+) mitral valve insufficiency. Mild (1+) tricuspid valve insufficiency. Mild aortic stenosis. Mild (1+) aortic valve insufficiency. Contrast injection was performed. Ordering Physician: Emy Werner Referring Physician: Emy Werner Performed By: Aquilino Yin [facility]
== END | disposition home or self-care (01) ==
PROVIDERS: PCP Internal Medicine; Referring Provider Internal Medicine; Visit Provider Internal Medicine
DX: I35.8 Other nonrheumatic aortic valve disorders (principal)
CPT/HCPCS: 93306; Q9957; A4216; C8929

== ENCOUNTER → 2023-09-24 | Outpatient (CLI) | payer MEDICARE, OTHER, SELFPAY ==
--- NOTE | 2023-09-24 13:33 | BI_ITS ---
MAMMOGRAPHY - BILATERAL SCREENING REASON FOR EXAM: Female, 88 years old. Routine annual screening examination. PERTINENT HISTORY: Non-contributory. TECHNIQUE: Digital bilateral breast veena (3D mammographic acquisition) in the CC and MLO projections. 2-D mediolateral oblique (MLO) and craniocaudad (CC) views of both breasts were obtained. CAD: Full Field Digital Mammography with Computer Added Detection was performed. COMPARISON: Comparison is made with prior study dated September 02, 2022 and August 29, 2021. FINDINGS: Breast Composition: There are scattered areas of fibroglandular density. There are no dominant masses or suspicious calcifications. Stable asymmetry of breast tissue with more breast tissue is seen in the retroareolar region of the left breast as compared to the right side. Stable bilateral secretory calcifications. No other significant abnormalities are identified. There has been no significant change since the prior study. BI/SCRN MAMM (CAD)W/VEENA BILAT IMPRESSION: Stable bilateral screening mammogram. Yearly follow-up mammogram recommended. (A) ASSESSMENT CATEGORY: BIRADS Category 2: Benign. A letter regarding these results will be sent to the patient by the facility within 30 days. Approximately 10% of breast cancers are not detected by mammography. A normal mammogram should not delay biopsy of a clinically suspicious abnormality. [id number] Electronically Signed: Ronni Snell MD at 14:44 EDT ,
--- NOTE | 2023-09-24 13:35 | BD_ITS ---
STUDY: DUAL ENERGY X-RAY ABSORPTIOMETRY / DXA REASON FOR EXAM: Female, 88 years old. [id number] TECHNIQUE: Bone Mineral Density (BMD) measurements of lumbar spine and bilateral hips were obtained. COMPARISON: Comparison is made with prior study dated 05/01/2021. FINDINGS: Lumbar Spine (L1-L4): g/cm2 (1.199) / T-score (1.4) / Z-score (4.3) Findings are suggestive of normal bone density with a low fracture risk. Left Femur Total: g/cm2 (0.852) / T-score (-0.7) / Z-score (1.6) Left Femoral Neck: g/cm2 (0.572) / T-score (-2.5) / Z-score (0.0) Right Femur Total: g/cm2 (0.826) / T-score (-0.9) / Z-score (1.4) Right Femoral Neck: g/cm2 (0.657) / T-score (-1.7) / Z-score (0.8) The T-Scores on the most recent prior examination were: Lumbar Spine (L1-L4): There has been no change of bone density since the previous examination. Left Femur Total: which represents an improvement of 2.9%. Right Femur Total: which represents a worsening of 1.7%. BD/Dexa Bone Density Study IMPRESSION: The patient is considered osteopenic as outlined below according to World Amrik Organization (WHO) criteria with a high fracture risk. There has been improvement of bone density since the previous examination. Reference Information: The T-score is the number of standard deviations above or below the standard which is normal for young adults at their peak bone mineral density. The World Health Organization (WHO) interprets the T-scores as follows: Above -1 Normal bone density Between -1 and -2.5 Osteopenia Equal to / or below -2.5 Osteoporosis As a practical clinical guideline, osteopenia may be graded as follows: Mild -1 through -1.5 Moderate -1.6 through -2.0 Severe -2.1 through -2.4 The Z-score is the number of standard deviations above or below age-matched controls. A Z-score of less than -1.5 would be considered abnormal. References: 1. NIH Osteoporosis and Related Bone Diseases www osteo.org 2. International Society for Clinical Densitometry www iscd.org 3. National Osteoporosis Foundation www nof.org Electronically Signed: Ronni Snell MD at 14:01 EDT ,
--- NOTE | 2023-09-24 14:16 | CT_ITS ---
INDICATION: lung nodule, solitary EXAMINATION: CT CHEST WITHOUT CONTRAST - CT Chest W/O Contrast Injection TECHNIQUE: Helically acquired images were obtained of the chest. A radiation dose optimization technique was used for this scan. IV Contrast dosage and agent: None. COMPARISON: 09/02/2022 FINDINGS: LUNGS, PLEURA AND LARGE AIRWAYS: There is no change in 1.5 cm noncalcified nodule in the inferior right lower lobe of the lungs on image 98 consistent with treated bronchogenic carcinoma. No new noncalcified nodule or mass. No pleural effusion or thickening. No pneumothorax. THYROID: No thyroid lesions. HEART AND PERICARDIUM: Heart size is normal. No pericardial effusion. CORONARY ARTERIES: Coronary artery calcification is seen. VESSELS: Thoracic aorta is not dilated. MEDIASTINUM AND ACNDICE: No mediastinal or hilar adenopathy. Esophagus is unremarkable. Large hiatal hernia. UPPER ABDOMEN: 3 cm multilobulated septated cyst in the posterior segment of the right lobe of the liver. BONES: Mild dextroscoliosis thoracic spine with degenerative disc disease. CT/Chest without Contrast IMPRESSION: 1. No change in 1.5 cm right lower lobe pulmonary nodule, possibly treated bronchogenic carcinoma. 2. Large hiatal hernia. Electronically Signed: Dillon Mendoza MD at 16:13 EDT ,
== END | disposition home or self-care (01) ==
LOC: OPBD 13:32
PROVIDERS: PCP Internal Medicine; Referring Provider Internal Medicine; Visit Provider Internal Medicine
DX: Z12.31 Encounter for screening mammogram for malignant neoplasm of breast (principal); R91.1 Solitary pulmonary nodule; Z78.0 Asymptomatic menopausal state
CPT/HCPCS: 71250; 77063; 77067; 77080

== ENCOUNTER 2023-10-06 11:39 | Inpatient (IN) | payer MEDICARE, OTHER, SELFPAY ==
[2023-10-06] VITALS (8 sets, daily range): BP systolic 98–126; BP diastolic 54–97; PULSE 57–65; RESP 16–21; TEMP 36.3–36.5; O2SAT 94–96; BMI 32.6; BMI 31.5
--- NOTE | 2023-10-06 13:09 | EKG12_ITS ---
Test Reason : Blood Pressure : / mmHG Vent. Rate : 059 BPM Atrial Rate : 059 BPM P-R Int : 162 ms QRS Dur : 086 ms QT Int : 432 ms P-R-T Axes : 052 034 075 degrees QTc Int : 427 ms Sinus bradycardia Otherwise normal ECG Confirmed by ENRIQUETA RIVAS, SEJAL ([id number]), school photograph editor GLORY LINARES ([id number]) on 10/07/2023 8:34:06 AM Referred By: Confirmed By:SEJAL ROBISON MD
[2023-10-06] MEDS: Morphine 4 MG/ML Syringe IV ×2 (13:19→15:22)
[2023-10-06] MEDS: Ondansetron 4 MG/2 ML Vial IV (13:19)
--- NOTE | 2023-10-06 13:25 | EX.ED.DYSGE1 ---
HPI History of Present Illness Chief Complaint: Lower Extremity Injury Informant: patient and EMS Narrative Narrative: 88-year-old female presenting to the emergency room with left hip fracture. Patient reportedly was at a concert last evening was walking up a hill when she lost her balance and fell. She states that she was helped to her feet was able to get home but this morning had difficulty getting out of bed. She saw primary care where a hip and pelvis x-rays were obtained. This demonstrated a nondisplaced left subcapital fracture. Patient was transferred by squad. She notes pain with certain movements. She denies any other injuries. She notes that she is on aspirin and Plavix. She is not fully anticoagulated. She has a history of coronary artery stent placement/CAD hypertension hyperlipidemia. [facility] Medical History Endometrial cancer History of non-ST elevation myocardial infarction (NSTEMI) (02/25/07) Essential (primary) hypertension Dyspnea Hyperlipidemia Atherosclerotic heart disease of [place] coronary artery without angina pectoris Home Medications ?Medication ?Instructions ?Recorded ?Last Taken ?Type aspirin 81 mg tablet,delayed 81 mg PO DAILY 06/16/13 10/06/23 History release valsartan 160 mg tablet 160 mg PO BID #180 tabs 03/26/17 10/06/23 Rx atorvastatin 80 mg tablet 80 mg PO QHS #90 tabs 06/06/17 10/05/23 Rx clopidogrel 75 mg tablet 75 mg PO DAILY #90 tabs 06/06/17 10/06/23 Rx ferrous sulfate 325 mg (65 mg 325 mg PO DAILY 06/06/17 10/06/23 History iron) tablet (FerrouSul) amlodipine 10 mg tablet 10 mg PO DAILY #90 tabs 07/16/18 10/06/23 Rx cholecalciferol (vitamin D3) 125 125 mcg PO QWEEK 08/26/19 10/05/23 History mcg (5,000 unit) capsule furosemide 20 mg tablet 20 mg PO DAILY 08/26/19 10/06/23 History levothyroxine 88 mcg tablet 88 mcg PO DAILY 08/26/19 10/06/23 History metoprolol tartrate 50 mg tablet 50 mg PO BID 08/26/19 10/06/23 History famotidine 20 mg tablet (Pepcid) 20 mg PO BID 12/10/21 10/06/23 History folic acid 1 mg tablet 1 mg PO DAILY 10/06/23 10/06/23 History Allergy/AdvReac Type Severity Reaction Status Date / Time No Known Allergies Allergy Verified 10/06/23 11:45 Family History Mother Dementia Son Cancer Lung cancer Surgical History History of herniorrhaphy History of left heart catheterization (10/2012) History of coronary artery stent placement (02/25/07) Social History (Updated 10/06/23 @ 14:[address] Katya Saucedo MD) household members: none Smoking Status: Never smoker alcohol intake: never substance use type: does not use caffeine: Yes Type: coffee what type of physical activity do you participate in: bicycling frequency: 1-2 times per week duration: 15-30 minutes/day seatbelt use: always do you feel safe at home: Yes ROS ROS ED Constitutional Constitutional ED: Denies chills or weight loss Eyes Eyes: Denies change in vision or diplopia ENT ENT ED: Denies ear pain, rhinorrhea or sore throat Cardiovascular Cardiovascular: Denies chest pain, orthopnea, palpitations or racing heartbeat Respiratory/Chest Respiratory/Chest: Denies cough, dyspnea or orthopnea Gastrointestinal Gastrointestinal: Denies abdominal pain, diarrhea, nausea or vomiting Genitourinary Genitourinary ED: Denies dysuria, hematuria or urinary frequency Musculoskeletal Musculoskeletal: Reports other Details: Left hip/groin pain ; Denies arthralgias or myalgias Integumentary Denies abscess or rash Neurologic Neurologic: Denies headache(s) or weakness Psychiatric Psychiatric: Denies anxiety, depression, suicidal ideation or suicidal thoughts Endocrine Endocrinology: Denies polydipsia, polyphagia or polyuria Allergic/Immunologic Allergic/Immunologic ED: Denies mouth swelling, tongue swelling or urticaria EXAM Physical Exam Const Vital Signs: 10/06/23 11:40 10/06/23 13:39 Temperature 97.4 F L Temperature Source Temporal Pulse Rate 57 L 62 Respiratory Rate 16 20 H Blood Pressure 120/56 L 98/86 H Blood Pressure Mean 77 90 Pulse Ox 96 94 Oxygen Delivery Method Room Air Room Air Positive well nourished, well developed and obese General Appearance ED: well developed Nutritional Appearance: obese HEENT Reports normocephalic, head/scalp atraumatic and moist mucous membranes Eyes PERRL and EOMs intact bilaterally Neck no lymphadenopathy, supple and no JVD Resp normal respiratory effort and clear to auscultation bilaterally Cardio regular rate, regular rhythm and no murmurs GI normal to inspection, nondistended, normoactive bowel sounds and non-tender Palpation: soft Back/Spine no CVA tenderness and normal ROM Extremity Extremity Narrative: There is no shortening or rotation of the leg. There is superficial abrasion to the right knee. Mild tenderness to palpation along the medial aspect of the left hip. No pubic rami tenderness. General Extremety ED: Negative for edema General Extremity: Negative for edema Neuro oriented x3 and CN's II-XII intact bilaterally Sensorium / Orientation: alert Motor Exam: strength 5/5 throughout Psych mental status grossly normal Mood & Affect: Negative for depressed or tearful Skin no rashes or lesions noted and no wounds MDM MDM MDM Narrative Medical decision making narrative: Differential diagnosis includes but not limited to fracture sprain strain pubic rami fracture I reviewed the patient's outpatient x-rays and agree with the diagnosis of subcapital hip fracture. Basic blood work was obtained. This showed hemoglobin 13.8 white count 8.7. Normal coags. Creatinine 1.10 BUN of 25 glucose 73. Patient received a dose of morphine. I spoke first with Dr. Cerna and then Dr. العلي. Plan is admission to hospital. History & Record Review Discussion w/independent historian: Patient and Friend Lab Data Attestation: I reviewed the patient's lab results. Labs: Laboratory Results - last 24 hr 10/06/23 11:50 WBC 8.7 RBC 4.62 Hgb 13.8 Hct 43.2 MCV 93.5 MCH 29.9 MCHC 31.9 L RDW Std Deviation 44.0 H RDW Coeff of Rodrigue 12.9 Plt Count 284 MPV 9.5 Immature Gran % (Auto) 0.700 Neut % (Auto) 77.4 H Lymph % (Auto) 11.7 L [place] % (Auto) 8.7 Eos % (Auto) 0.9 Baso % (Auto) 0.6 Absolute Neuts (auto) 6.8 Absolute Lymphs (auto) 1.02 Nucleated RBC % 0 PT 13.7 INR 1.0 APTT 27.3 Sodium 136 Potassium 4.0 Chloride 104 Carbon Dioxide 27.0 Anion Gap 5 BUN 25 H Creatinine 1.10 H Estim Creat Clear Calc 37.60 Est GFR (MDRD) Af Amer 61 Est GFR (MDRD) Non-Af 50 L BUN/Creatinine Ratio 22.7 H Glucose 73 L Calcium 9.7 Total Bilirubin 0.80 Direct Bilirubin 0.23 AST 38 H ALT 38 Alkaline Phosphatase 89 Total Protein 7.7 Albumin 3.9 Globulin 3.8 EKG Initial EKG: Attestation: I personally reviewed and interpreted this EKG as follows: Comments: Sinus harvinder at 59 bpm Management Discussion w/another healthcare provider: Hospitalist (Dr. Saucedo) and Litigation Paralegal (Drs. Wilkerson and Severiano.) Discharge Plan Dx/Rx/DC Orders Clinical Impression: Closed fracture of left hip, Fall, CAD (coronary artery disease) Disposition Disposition: Acute Care Hospital [facility]
[2023-10-06 13:37] LABS: Absolute Lymphocyte Count 1.02 X10^3/uL (0.83-4.51); Absolute Neutrophil Count 6.8 X10^3/uL (2.0-7.7); Basophil# 0.05 X10^3/uL; Basophil% 0.6 % (0-1); Eosinophil# 0.08 X10^3/uL; Eosinophils% 0.9 % (0-5); Hematocrit 43.2 % (37-47); Hemoglobin 13.8 g/dL (12.0-15.0); Lymphocyte # 1.02 X10^3/ul (0.83-4.51); Lymphocyte % 11.7 % (19-41); Mean Corp Hgb Conc 31.9 g/dL (32-36); Mean Corpuscular Hgb 29.9 pg (27.0-32.0); Mean Corpuscular Volume 93.5 fL (81-99); Mean Platelet Vol. 9.5 fl (6.2-12.0); Monocyte# 0.76 X10^3/uL; Monocyte% 8.7 % (0-10); NRBC Flagged by Analyzer 0 % (0-5); Neutrophil # 6.75 X10^3/uL (2.7-7.7); Neutrophil % 77.4 % (47-70); Platelet Count 284 K/mm3 (150-450); RBC Distribution Width CV 12.9 % (11.6-14.6); Red Blood Count 4.62 M/mm3 (4.2-5.4); White Blood Count 8.7 K/mm3 (4.4-11.0)
[2023-10-06 13:49] LABS: Prothrombin Time (Protime)PT. 13.7 SECONDS (11.7-14.9)
[2023-10-06 13:50] LABS: Partial Thromboplast Time 27.3 Seconds (24.1-36.2)
[2023-10-06 13:56] LABS: AST(SGOT) 38 U/L (15-37); Alanine Aminotransfer ALT/SGPT 38 U/L (13-56); Albumin, Serum 3.9 g/dL (3.2-5.0); Alkaline Phosphatase 89 U/L (45-117); Anion Gap 5 (5-15); BUN 25 mg/dL (7-18); BUN/Creat Ratio 22.7 RATIO (10-20); Bilirubin, Direct 0.23 mg/dL (0.00-0.30); Calcium,Total 9.7 mg/dL (8.5-10.1); Chloride 104 mmol/L (98-107); EST Glomerular Filtration Rate 50 mL/min (>60); Est Glom Filt Rate - Afr Amer 61 mL/min (>60); Globulin 3.8 g/dL (2.2-4.2); Glucose 73 mg/dL (74-106); Protein, Total 7.7 g/dL (6.4-8.2); Sodium Level 136 mmol/L (136-145)
--- NOTE | 2023-10-06 14:08 | PCM.HP.STD ---
HPI - General General Date of Admission: 10/06/23 Date of Service: 10/06/23 Chief Complaint: Fall, L hip pain. HPI Narrative The patient is an 88 y/o F w/ PMHx: Known Pulmonary Nodules, Hypothyroidism, Obesity, CAD s/p PCI right coronary artery and the circumflex artery 2007/NSTEMI, HTN, HLD, Hx Endometrial CA who presents to the [facility] ED on 10/06/23 with history of mechanical fall the day prior with evaluation at the now clinic with plain films obtained with evidence of a left hip fracture with prompt transition to the ED for evaluation and intervention. She notes currently her pain is controlled if she is at rest and does not move but she does report a sharp sudden shooting stabbing pain to the left hip that randomly recur even at rest and rates the discomfort 3-4 out of 10 in severity. Workup in the ED included T97.4, heart rate 57, BP 120/56, respiratory rate 16, 96% on room air with most recent repeat vital signs heart rate 62, BP 98/86, respiratory rate 20, 94% on room air, CBC with WBC 8.7, human 13.8, MCV 93.5, platelet 284 without marked shift, unremarkable coags, CMP with BUN/current 25/1.10, GFR 50, glucose 73, AST 38 otherwise hepatic profile unremarkable, EKG with sinus bradycardia with no acute evidence of ischemia. Out side imaging included 10/06/2023 left hip and pelvis plain film secondary to acute hip pain obtained per PCP Dr. Werner with nondisplaced left subcapital femoral fracture. Also of note CT Chest 09/24/23 with no noted change in 1.5 cm right lower lobe pulmonary nodule, large hiatal hernia. In the ED patient ministered morphine 4 mg IV x 1 as well as Zofran 4 mg IV x 1. [facility] Medical History (Updated 10/06/23 @ 21:[address] Katya Saucedo MD) Pulmonary nodules Hypothyroidism Obesity GERD (gastroesophageal reflux disease) Endometrial cancer History of non-ST elevation myocardial infarction (NSTEMI) (02/25/07) Essential (primary) hypertension Hyperlipidemia Atherosclerotic heart disease of [place] coronary artery without angina pectoris Home Medications ?Medication ?Instructions ?Recorded ?Last Taken ?Type aspirin 81 mg tablet,delayed 81 mg PO DAILY 06/16/13 10/06/23 History release valsartan 160 mg tablet 160 mg PO BID #180 tabs 03/26/17 10/06/23 Rx atorvastatin 80 mg tablet 80 mg PO QHS #90 tabs 06/06/17 10/05/23 Rx clopidogrel 75 mg tablet 75 mg PO DAILY #90 tabs 06/06/17 10/06/23 Rx ferrous sulfate 325 mg (65 mg 325 mg PO DAILY 06/06/17 10/06/23 History iron) tablet (FerrouSul) amlodipine 10 mg tablet 10 mg PO DAILY #90 tabs 07/16/18 10/06/23 Rx cholecalciferol (vitamin D3) 125 125 mcg PO QWEEK 08/26/19 10/05/23 History mcg (5,000 unit) capsule furosemide 20 mg tablet 20 mg PO DAILY 08/26/19 10/06/23 History levothyroxine 88 mcg tablet 88 mcg PO DAILY 08/26/19 10/06/23 History metoprolol tartrate 50 mg tablet 50 mg PO BID 08/26/19 10/06/23 History famotidine 20 mg tablet (Pepcid) 20 mg PO BID 12/10/21 10/06/23 History folic acid 1 mg tablet 1 mg PO DAILY 10/06/23 10/06/23 History Allergy/AdvReac Type Severity Reaction Status Date / Time No Known Allergies Allergy Verified 10/06/23 11:45 Family History Mother Dementia Son Cancer Lung cancer other (Patient denies any marked paternal family history including HD, DM, CA.) Surgical History History of herniorrhaphy History of left heart catheterization (10/2012) History of coronary artery stent placement (02/25/07) Social History household members: none Smoking Status: Never smoker alcohol intake: never substance use type: does not use caffeine: Yes Type: coffee what type of physical activity do you participate in: bicycling frequency: 1-2 times per week duration: 15-30 minutes/day seatbelt use: always do you feel safe at home: Yes ROS ROS Narrative Admission Review of Systems: CONSTITUTIONAL: No weight loss, fever, chills, + weakness or fatigue. HEENT: Eyes: No visual loss, blurred vision, double vision or yellow sclerae. Ears, Nose, Throat: No hearing loss, sneezing, congestion, runny nose or sore throat. SKIN: No rash or itching, lesions, wounds. CARDIOVASCULAR: No chest pain, chest pressure or chest discomfort, palpitations, edema, orthopnea, syncopal events. RESPIRATORY: No shortness of breath, cough or sputum, wheezing, hemoptysis. GASTROINTESTINAL: No anorexia, nausea, vomiting or diarrhea, abdominal pain, melena, BRBPR. GENITOURINARY: No dysuria, frequency, urgency or retention. NEUROLOGICAL: No headache, dizziness, syncope, paralysis, ataxia, numbness or tingling in the extremities, focal weakness, change in bowel or bladder control, seizure. MUSCULOSKELETAL: + muscle, back pain, joint pain or stiffness. HEMATOLOGIC: + History of prior anemia/iron deficiency, easy bleeding/bruising. LYMPHATICS: No enlarged nodes. No history of splenectomy. PSYCHIATRIC: No history of depression or anxiety. ENDOCRINOLOGIC: No reports of sweating, cold or heat intolerance. No polyuria or polydipsia. ALLERGIES: No history of asthma, hives, eczema or rhinitis. Vital Signs Vital Signs Vital Signs: 10/06/23 11:40 10/06/23 13:39 Temperature 97.4 F L Temperature Source Temporal Pulse Rate 57 L 62 Respiratory Rate 16 20 H Blood Pressure 120/56 L 98/86 H Blood Pressure Mean 77 90 Pulse Ox 96 94 Oxygen Delivery Method Room Air Room Air Weight Weight: 184 lb 4.903 oz Body Mass Index (BMI) 32.6 Physical Exam Narrative Physical Examination: General: Awake, alert, oriented x 3 and cooperative, laying in the ED bed, fatigued, denies any current pain. Skin: Normal color, normal turgor, no icterus, no cyanosis except occasional staged ecchymoses, abrasion. HEENT: AT/NC, EOMI, PERRLA, mildly dry MM, no carotid bruits or JVD noted. Lungs: Mildly diminished, greater bases, appropriate effort, no rales, ronchi or wheezing. Heart: Regular rate and rhythm; no gallop, rub audible, + SM. Abdomen: Soft, obese, NTTP, ND, mildly hyperactive BS, no appreciated HSM. Extremities: No cyanosis, no clubbing, bilateral ankle edema, peripheral pulses intact, left hip externally rotated and mildly shortened. Neurological: Patient awake, alert, oriented as noted, cognitive function intact; pupils equally reactive to light and accommodation, cranial nerves grossly normal, moving all 4 extremities except expected limitation left lower extremity given fall with recent hip fracture, strength accordingly severely globally decreased. Psychiatric: Affect appears fatigued otherwise normal, no acute evidence of depressive or anxiety feelings. Results Lab / Micro Data 10/06/23 11:50 10/06/23 11:50 Labs: Laboratory Results - last 24 hr 10/06/23 11:50: WBC 8.7, RBC 4.62, Hgb 13.8, Hct 43.2, MCV 93.5, MCH 29.9, MCHC 31.9 L, RDW Std Deviation 44.0 H, RDW Coeff of Rodrigue 12.9, Plt Count 284, MPV 9.5, Immature Gran % (Auto) 0.700, Neut % (Auto) 77.4 H, Lymph % (Auto) 11.7 L, [place] % (Auto) 8.7, Eos % (Auto) 0.9, Baso % (Auto) 0.6, Absolute Neuts (auto) 6.8, Absolute Lymphs (auto) 1.02, Nucleated RBC % 0, PT 13.7, INR 1.0, APTT 27.3, Sodium 136, Potassium 4.0, Chloride 104, Carbon Dioxide 27.0, Anion Gap 5, BUN 25 H, Creatinine 1.10 H, Estim Creat Clear Calc 37.60, Est GFR (MDRD) Af Amer 61, Est GFR (MDRD) Non-Af 50 L, BUN/Creatinine Ratio 22.7 H, Glucose 73 L, Calcium 9.7, Total Bilirubin 0.80, Direct Bilirubin 0.23, AST 38 H, ALT 38, Alkaline Phosphatase 89, Total Protein 7.7, Albumin 3.9, Globulin 3.8 Assessment & Plan Assessment/Plan (1) Fracture of femoral neck, left, closed: QUALIFIERS: Encounter type: initial encounter Qualified Code(s): S72.002A - Fracture of unspecified part of neck of left femur, initial encounter for closed fracture PLAN: Plan The patient is an 88 y/o F w/ PMHx: Known Pulmonary Nodules, Hypothyroidism, Obesity, CAD s/p PCI right coronary artery and the circumflex artery 2007/NSTEMI, HTN, HLD, Hx Endometrial CA who presents to the [facility] ED on 10/06/23 with history of mechanical fall the day prior with evaluation at the now clinic with plain films obtained with evidence of a left hip fracture with prompt transition to the ED for evaluation and intervention. #1. General debility, left hip pain s/p mechanical fall w/ left nondisplaced subcapital femoral fracture: Orthopedic surgery consulted from ED. Will admit to [facility], will await orthopedic surgery input with n.p.o. status after midnight when planned surgical intervention likely Friday given most recent Plavix administration on day of presentation in AM, michaud placement, monitor I/Os, frequent positioning, fall precautions, Pain, anti-emetic regimen. PT/OT following operative intervention. CM consulted for discharge planning. Per NSQIP patient risk moderate however EKG with sinus bradycardia with no acute evidence of ischemia with no recent ongoing chest pain or dyspnea complaints with PCI placement remotely in 2006, ongoing cardiology evaluations thus discussed with orthopedic surgeon at this time agree with progression to operative intervention when orthopedic surgery amenable given Plavix last intake 10/06/2019 4 AM. #2. CAD: Status post PCI right coronary artery and circumflex artery 2007/NSTEMI, will continue aspirin, temporarily holding Plavix given need for operative intervention, continue statin, valsartan and metoprolol regimen. 02/20/2023 echocardiogram with EF 70%, stage II diastolic dysfunction, mild concentric LVH, mild biatrial dilatation, mild MVI, mild TBI, mild aortic stenosis, mild aortic valve insufficiency. #3. Chronic iron deficiency anemia: Admission hemoglobin 13.8, MCV 93.5, baseline hemoglobin most recently noted remotely had been baseline 9-10, currently hemoglobin seems normal range, clarifying but at this time appears to be on chronic iron supplementation. #4. Hypertension: Continue home regimen including valsartan, metoprolol, Lasix, amlodipine with hold parameters as needed, PRN hydralazine. #5. Hyperlipidemia: We will continue patient on statin therapy. #6. GERD: We will continue patient home famotidine regimen, as needed Mylanta. #7. Hypothyroidism: We will continue patient on levothyroxine regimen. #8. Obesity: Weight loss and lifestyle changes encouraged. #9. Known Pulmonary Nodules: Noted recent CT Chest 09/24/23 with no noted change in 1.5 cm right lower lobe pulmonary nodule, large hiatal hernia. #10. DVT prophylaxis: SCDs. #11. CODE status: Patient EDUARDO is her son Diogenes and living will is currently in place. Discussed CODE status at length including difference between FULL code, DNR-CCA and DNR-CC status. Following discussions about the differences in these status, requested Full Code status. Advanced Care Planning Face to Face Time: 16 minutes. Charges/Coding Visit Charges Inpatient E&M: 63285 Init Hosp L3 Procedures Hospitalists Procedures: 60412 Advncd Care Plan 30 Min
--- NOTE | 2023-10-06 14:30 | NURSING ---
MED SURG WHITE LEFT HIP FRACTURE
[2023-10-06 15:10] LABS: Magnesium 2.6 mg/dL (1.6-2.6)
--- NOTE | 2023-10-06 16:56 | PCM.CONS.GEN ---
Assessment & Plan Assessment/Plan (1) Fracture of femoral neck, left, closed: QUALIFIERS: Encounter type: initial encounter Qualified Code(s): S72.002A - Fracture of unspecified part of neck of left femur, initial encounter for closed fracture PLAN: Plan Thoroughly discussed risk benefits and alternatives of procedural options including percutaneous screw fixation versus hemiarthroplasty and both patient and her son wish to proceed with hemiarthroplasty. She did take Plavix this morning. We will plan on definitive surgical fixation 10/08/2023 antibiotics on-call to the OR hold anticoagulation. Surgical time will be determined tomorrow but will likely be in the afternoon. Wrist benefits alternatives of the procedure were reviewed including risk of bleeding infection nerve artery tissue damage need for further surgery continued pain postoperative dislocation leg length discrepancy fracture and expected postoperative course. HPI Consult Data Date of Consult: 10/06/23 HPI Narrative HPI Narrative: KATE CRENSHAW, is a 88 F who presents after a ground-level fall on a heel after a concert she typically uses a cane she did ambulate minimally afterwards she has left groin pain. Denies other injury. I did speak directly with her and her son was on the telephone REPLACED BY [facility] Medical History Endometrial cancer History of non-ST elevation myocardial infarction (NSTEMI) (02/25/07) Essential (primary) hypertension Dyspnea Hyperlipidemia Atherosclerotic heart disease of [place] coronary artery without angina pectoris Home Medications ?Medication ?Instructions ?Recorded ?Last Taken ?Type aspirin 81 mg tablet,delayed 81 mg PO DAILY 06/16/13 10/06/23 History release valsartan 160 mg tablet 160 mg PO BID #180 tabs 03/26/17 10/06/23 Rx atorvastatin 80 mg tablet 80 mg PO QHS #90 tabs 06/06/17 10/05/23 Rx clopidogrel 75 mg tablet 75 mg PO DAILY #90 tabs 06/06/17 10/06/23 Rx ferrous sulfate 325 mg (65 mg 325 mg PO DAILY 06/06/17 10/06/23 History iron) tablet (FerrouSul) amlodipine 10 mg tablet 10 mg PO DAILY #90 tabs 07/16/18 10/06/23 Rx cholecalciferol (vitamin D3) 125 125 mcg PO QWEEK 08/26/19 10/05/23 History mcg (5,000 unit) capsule furosemide 20 mg tablet 20 mg PO DAILY 08/26/19 10/06/23 History levothyroxine 88 mcg tablet 88 mcg PO DAILY 08/26/19 10/06/23 History metoprolol tartrate 50 mg tablet 50 mg PO BID 08/26/19 10/06/23 History famotidine 20 mg tablet (Pepcid) 20 mg PO BID 12/10/21 10/06/23 History folic acid 1 mg tablet 1 mg PO DAILY 10/06/23 10/06/23 History Allergy/AdvReac Type Severity Reaction Status Date / Time No Known Allergies Allergy Verified 10/06/23 11:45 Family History Mother Dementia Son Cancer Lung cancer Surgical History History of herniorrhaphy History of left heart catheterization (10/2012) History of coronary artery stent placement (02/25/07) Social History (Updated 10/06/23 @ 14:[address] Katya Saucedo MD) household members: none Smoking Status: Never smoker alcohol intake: never substance use type: does not use caffeine: Yes Type: coffee what type of physical activity do you participate in: bicycling frequency: 1-2 times per week duration: 15-30 minutes/day seatbelt use: always do you feel safe at home: Yes Physical Exam Const alert, oriented x3 and no apparent distress General Appearance: cooperative and comfortable Extremity Extremity Narrative: Left hip no ecchymosis no open wounds positive logroll neurovascular intact compartments soft Lab / Micro Data 10/06/23 11:50 10/06/23 11:50 Labs: Laboratory Results - last 24 hr 10/06/23 11:50: WBC 8.7, RBC 4.62, Hgb 13.8, Hct 43.2, MCV 93.5, MCH 29.9, MCHC 31.9 L, RDW Std Deviation 44.0 H, RDW Coeff of Rodrigue 12.9, Plt Count 284, MPV 9.5, Immature Gran % (Auto) 0.700, Neut % (Auto) 77.4 H, Lymph % (Auto) 11.7 L, [place] % (Auto) 8.7, Eos % (Auto) 0.9, Baso % (Auto) 0.6, Absolute Neuts (auto) 6.8, Absolute Lymphs (auto) 1.02, Nucleated RBC % 0, PT 13.7, INR 1.0, APTT 27.3, Sodium 136, Potassium 4.0, Chloride 104, Carbon Dioxide 27.0, Anion Gap 5, BUN 25 H, Creatinine 1.10 H, Estim Creat Clear Calc 37.60, Est GFR (MDRD) Af Amer 61, Est GFR (MDRD) Non-Af 50 L, BUN/Creatinine Ratio 22.7 H, Glucose 73 L, Calcium 9.7, Magnesium 2.6, Total Bilirubin 0.80, Direct Bilirubin 0.23, AST 38 H, ALT 38, Alkaline Phosphatase 89, Total Protein 7.7, Albumin 3.9, Globulin 3.8, Blood Type A POSITIVE, Antibody Screen NEGATIVE
[2023-10-06] MEDS: Acetaminophen 325 MG Tablet 650 MG PO (19:56)
[2023-10-06] MEDS: Metoprolol Tartrate 50 MG Tablet PO (21:34)
[2023-10-06] MEDS: Atorvastatin Calcium 80 MG Tablet PO (21:34)
[2023-10-06] MEDS: Losartan Potassium 50 MG Tablet PO (21:34)
[2023-10-06] MEDS: oxyCODONE 5 MG Tablet PO (21:35)
[2023-10-06] MEDS: Senna/Docusate Sodium 1 Tablet 2 TABLET PO (21:35)
[2023-10-06] MEDS: 0.9% Normal Saline (1000mL) 1,000 ML 100 ML IV (23:57)
[2023-10-07 03:59] VITALS: BP 117/57; PULSE 55; RESP 18; TEMP 36.6; O2SAT 98
[2023-10-07] MEDS: Levothyroxine 88 MCG Tablet PO (04:03)
[2023-10-07 05:15] VITALS: BMI 31.5
[2023-10-07 07:20] LABS: Absolute Lymphocyte Count 1.33 X10^3/uL (0.83-4.51); Absolute Neutrophil Count 4.8 X10^3/uL (2.0-7.7); Basophil# 0.03 X10^3/uL; Basophil% 0.4 % (0-1); Eosinophils% 4.1 % (0-5); Hematocrit 41.4 % (37-47); Hemoglobin 13.3 g/dL (12.0-15.0); Lymphocyte # 1.33 X10^3/ul (0.83-4.51); Lymphocyte % 18.3 % (19-41); Mean Corp Hgb Conc 32.1 g/dL (32-36); Mean Corpuscular Hgb 30.4 pg (27.0-32.0); Mean Corpuscular Volume 94.7 fL (81-99); Mean Platelet Vol. 8.8 fl (6.2-12.0); Monocyte# 0.77 X10^3/uL; Monocyte% 10.6 % (0-10); NRBC Flagged by Analyzer 0 % (0-5); Neutrophil # 4.82 X10^3/uL (2.7-7.7); Neutrophil % 66.3 % (47-70); Platelet Count 207 K/mm3 (150-450); RBC Distribution Width CV 12.9 % (11.6-14.6); Red Blood Count 4.37 M/mm3 (4.2-5.4); White Blood Count 7.3 K/mm3 (4.4-11.0)
[2023-10-07 07:46] LABS: ALB/GLOB Ratio 0.8 RATIO (0.9-2.4); AST(SGOT) 32 U/L (15-37); Alanine Aminotransfer ALT/SGPT 29 U/L (13-56); Albumin, Serum 2.8 g/dL (3.2-5.0); Alkaline Phosphatase 74 U/L (45-117); Anion Gap 3 (5-15); BUN 19 mg/dL (7-18); BUN/Creat Ratio 19.3 RATIO (10-20); Calcium,Total 8.9 mg/dL (8.5-10.1); Chloride 107 mmol/L (98-107); Creatinine, Serum 0.99 mg/dL (0.55-1.02); EST Glomerular Filtration Rate 57 mL/min (>60); Est Glom Filt Rate - Afr Amer 69 mL/min (>60); Estimated Creatinine Clearance 41.03 ml/min; Globulin 3.6 g/dL (2.2-4.2); Glucose 86 mg/dL (74-106); Potassium 4.4 mmol/L (3.5-5.1); Protein, Total 6.4 g/dL (6.4-8.2); Sodium Level 136 mmol/L (136-145)
[2023-10-07 07:52] VITALS: PULSE 53
[2023-10-07] MEDS: amLODIPine 10 MG Tablet PO (07:53)
[2023-10-07] MEDS: Ferrous Sulfate 325 MG Tablet PO (07:53)
[2023-10-07] MEDS: Famotidine 20 MG Tablet PO (07:53)
[2023-10-07] MEDS: Aspirin E.C. 81 MG Tablet PO (07:53)
[2023-10-07] MEDS: Losartan Potassium 50 MG Tablet PO ×2 (07:53→23:06)
[2023-10-07] MEDS: Senna/Docusate Sodium 1 Tablet 2 TABLET PO ×2 (07:53→23:06)
[2023-10-07] MEDS: Folic Acid 1 MG Tablet PO (07:53)
[2023-10-07] MEDS: Furosemide 20 MG Tablet PO (07:53)
[2023-10-07 08:00] VITALS: BP 133/68; PULSE 53; RESP 13; TEMP 36.7; O2SAT 93
--- NOTE | 2023-10-07 09:43 | PN.HOSP_ITS ---
Reason for Visit Reason for Visit: Diagnoses Fracture of unspecified part of neck of left femur, initial encounter for closed fracture (10/06/23) Subjective Subjective Patient was seen and examined today, she talked with orthopedic surgery today concerning her hip fracture repair, patient states it will be scheduled for tomorrow, it appears that the patient will undergo a hemiarthroplasty of the left hip. Objective Data Objective Data Vital Signs: Vital Signs Temp Pulse Resp BP Pulse Ox O2 Del Method O2 Flow Rate 98.1 F 53 L 13 133/68 H 93 Nasal Cannula 2 10/07/23 08:00 10/07/23 08:00 10/07/23 08:00 10/07/23 08:00 10/07/23 08:00 10/07/23 08:00 10/07/23 08:00 Oxygen Flow Rate (L/min) 2 Oxygen Delivery Method Nasal Cannula Weight: 80.7 kg Body Mass Index (BMI) 31.5 Intake & Output: Intake and Output for Last 24 Hours 10/05/23 10/06/23 10/07/23 23:59 23:59 23:59 Intake Total 200 / 400 350 / 350 Output Total 300 / 450 350 / 350 Balance -100 / -50 0 / 0 Lab / Micro Data 10/07/23 07:00 10/07/23 07:00 Labs: Laboratory Results - last 24 hr 10/06/23 11:50: WBC 8.7, RBC 4.62, Hgb 13.8, Hct 43.2, MCV 93.5, MCH 29.9, MCHC 31.9 L, RDW Std Deviation 44.0 H, RDW Coeff of Rodrigue 12.9, Plt Count 284, MPV 9.5, Immature Gran % (Auto) 0.700, Neut % (Auto) 77.4 H, Lymph % (Auto) 11.7 L, [place] % (Auto) 8.7, Eos % (Auto) 0.9, Baso % (Auto) 0.6, Absolute Neuts (auto) 6.8, Absolute Lymphs (auto) 1.02, Nucleated RBC % 0, PT 13.7, INR 1.0, APTT 27.3, Sodium 136, Potassium 4.0, Chloride 104, Carbon Dioxide 27.0, Anion Gap 5, BUN 25 H, Creatinine 1.10 H, Estim Creat Clear Calc 37.60, Est GFR (MDRD) Af Amer 61, Est GFR (MDRD) Non-Af 50 L, BUN/Creatinine Ratio 22.7 H, Glucose 73 L, Calcium 9.7, Magnesium 2.6, Total Bilirubin 0.80, Direct Bilirubin 0.23, AST 38 H, ALT 38, Alkaline Phosphatase 89, Total Protein 7.7, Albumin 3.9, Globulin 3.8, Blood Type A POSITIVE, Antibody Screen NEGATIVE 10/07/23 07:00: WBC 7.3, RBC 4.37, Hgb 13.3, Hct 41.4, MCV 94.7, MCH 30.4, MCHC 32.1, RDW Std Deviation 45.0 H, RDW Coeff of Rodrigue 12.9, Plt Count 207, MPV 8.8, Immature Gran % (Auto) 0.300, Neut % (Auto) 66.3, Lymph % (Auto) 18.3 L, [place] % (Auto) 10.6 H, Eos % (Auto) 4.1, Baso % (Auto) 0.4, Absolute Neuts (auto) 4.8, Absolute Lymphs (auto) 1.33, Nucleated RBC % 0, Sodium 136, Potassium 4.4, Chloride 107, Carbon Dioxide 26.0, Anion Gap 3 L, BUN 19 H, Creatinine 0.99, Estim Creat Clear Calc 41.03, Est GFR (MDRD) Af Amer 69, Est GFR (MDRD) Non-Af 57 L, BUN/Creatinine Ratio 19.3, Glucose 86, Calcium 8.9, Total Bilirubin 0.60, AST 32, ALT 29, Alkaline Phosphatase 74, Total Protein 6.4, Albumin 2.8 L, Globulin 3.6, Albumin/Globulin Ratio 0.8 L Physical Exam Const alert, oriented x3, no apparent distress and healthy appearing General Appearance: cooperative, well kempt and well developed Orientation / Consciousness: awake, oriented to person, oriented to place and oriented to time HEENT normocephalic, head/scalp atraumatic and moist oral mucous membranes Eyes PERRL, EOMs intact bilaterally and conjunctivae normal Neck supple, no JVD, thyroid normal and no carotid bruits General: trachea midline Resp normal respiratory effort, no retractions, no use of accessory muscles and clear to auscultation bilaterally Auscultation: Negative for rales, rhonchi or wheezes Cardio regular rate, regular rhythm, S1 normal heart sound, S2 normal heart sound, no murmurs, no rub and no gallops GI normal to inspection, nondistended, normoactive bowel sounds, soft to palpation, non-tender and non-distended Extremity no clubbing, cyanosis or edema Skin no rashes or lesions noted General Skin Exam: no breakdown Neuro oriented x3, CN's II-XII intact bilaterally, moves all extremities, no focal motor deficits and no sensory deficits noted Sensorium / Orientation: awake and alert Speech: speech normal Psych affect normal Assessment & Plan Assessment/Plan (1) Fracture of femoral neck, left, closed: QUALIFIERS: Encounter type: initial encounter Qualified Code(s): S72.002A - Fracture of unspecified part of neck of left femur, initial encounter for closed fracture PLAN: Plan 1. Left femoral neck fracture secondary to osteoporosis-patient will undergo ORIF tomorrow in the form of a left hemiarthroplasty. She will most likely need a short-term stay in rehab after the surgery. Patient lives in [facility]. #2 atherosclerotic heart disease-patient's last echocardiogram showed a normal ejection fraction with mild pulmonary hypertension. Patient appears stable to undergo surgery at this time. Patient's Plavix is being held due to her surgery tomorrow. #3 essential hypertension-patient will remain on her present medications, they will be adjusted if necessary #4 hyperlipidemia-patient will remain on a statin #5 hypothyroidism-patient is on Synthroid Total clinical time spent by myself addressing the patient's medical issues, reviewing all of her data, and collaborating with the patient's care team: 35 minutes Charges/Coding Visit Charges Inpatient E&M: 56932 Subs Hosp L2
--- NOTE | 2023-10-07 10:08 | CASEMGMT ---
MAY TANG Assessment: Face to Face with pt for initial transition planning/care coordination assessment. RN CLYDE introduced self and role at [facility], pt voices understanding and consents to assessment. Pt is A&O x4 and answers all questions appropriately at this time. Pt sitting up in bed in no distress. SW leaving room as RN CM entering. Care providers, pharmacy, and demographics verified/updated. Admitting Dx: fall, L hip fx PCP:Alphonso Specialists:gogo Arellano Preferred Pharmacy: [facility] Insurance: [facility], [employer] Insurance Prescription Benefit: no LNOK: Diogenes Monet, son; Anahi Acosta, sister Living Arrangements: Pt lives alone in a single story home with 1 step to enter with a rail. Pt reports she was I in ADL's/IADL's prior to surgery. Pt reports that she was planning moving to [facility] [place] next Friday. Pt plans to move forward with this plan. Transportation: Pt drives self and denies concerns with transportation. Pt son will transport her until she can drive again. DME:stair lift to basement, walk in tub HHC/SNF: Denies hx of Pt states no further concerns/needs. Pt to have OR tomorrow. Pt states she may be interested in going to [facility] skilled pending how she does with therapy. CM to follow. Advised pt to ask CM if any further question/concerns/needs arise, voices understanding. Pt Goal:TBD, Home vs [facility] pending therapy post surgery Plan: TBD, pending therapy evals post surgery and course of hospitalization Juarez OLVERA CM
--- NOTE | 2023-10-07 10:08 | CASEMGMT ---
Social Work- SW met with pt to conduct SDOH assessment. Pt reports there is no concerns of abuse. Pt reports a large friend group and reports she is active volunteering at [facility]. Pt was previously a pastry sous chef for 20 years. Pt son lives in [place] and is supportive. Pt reports that she is financially well off with no concerns. Pt is moving to an apartment at [facility] Friday. Pt reports that [facility] hires a moving company to move residents, so everything will be moved when she is d/c. Pt reports that she would like to go there for rehab if needed. Pt reports that she currently lives in a condo, which she plans to keep for when her son visits. Pt reports that she fell at a [employer] concert she was attending with a friend. Pt is positive and optimistic about surgery tomorrow and recovery following. SW will remain available to follow. CALIXTO Shields
--- NOTE | 2023-10-07 10:56 | PCM.PN.ORT ---
Subjective Subjective Seen and examined, doing well pain controlled. no fever chills nausea vomitting sob or CP. Great spirits. Objective Data Objective Data Vital Signs: Vital Signs Temp Pulse Resp BP Pulse Ox O2 Del Method O2 Flow Rate 98.1 F 53 L 13 133/68 H 93 Nasal Cannula 2 10/07/23 08:00 10/07/23 08:00 10/07/23 08:00 10/07/23 08:00 10/07/23 08:00 10/07/23 08:00 10/07/23 08:00 Oxygen Flow Rate (L/min) 2 Oxygen Delivery Method Nasal Cannula Weight: 177 lb 14.609 oz Body Mass Index (BMI) 31.5 Intake & Output: Intake and Output for Last 24 Hours 10/05/23 10/06/23 10/07/23 23:59 23:59 23:59 Intake Total 200 / 400 1350 / 1350 Output Total 300 / 450 1150 / 1150 Balance -100 / -50 200 / 200 Lab / Micro Data 10/07/23 07:00 10/07/23 07:00 Labs: Laboratory Results - last 24 hr 10/06/23 11:50: WBC 8.7, RBC 4.62, Hgb 13.8, Hct 43.2, MCV 93.5, MCH 29.9, MCHC 31.9 L, RDW Std Deviation 44.0 H, RDW Coeff of Rodrigue 12.9, Plt Count 284, MPV 9.5, Immature Gran % (Auto) 0.700, Neut % (Auto) 77.4 H, Lymph % (Auto) 11.7 L, [place] % (Auto) 8.7, Eos % (Auto) 0.9, Baso % (Auto) 0.6, Absolute Neuts (auto) 6.8, Absolute Lymphs (auto) 1.02, Nucleated RBC % 0, PT 13.7, INR 1.0, APTT 27.3, Sodium 136, Potassium 4.0, Chloride 104, Carbon Dioxide 27.0, Anion Gap 5, BUN 25 H, Creatinine 1.10 H, Estim Creat Clear Calc 37.60, Est GFR (MDRD) Af Amer 61, Est GFR (MDRD) Non-Af 50 L, BUN/Creatinine Ratio 22.7 H, Glucose 73 L, Calcium 9.7, Magnesium 2.6, Total Bilirubin 0.80, Direct Bilirubin 0.23, AST 38 H, ALT 38, Alkaline Phosphatase 89, Total Protein 7.7, Albumin 3.9, Globulin 3.8, Blood Type A POSITIVE, Antibody Screen NEGATIVE 10/07/23 07:00: WBC 7.3, RBC 4.37, Hgb 13.3, Hct 41.4, MCV 94.7, MCH 30.4, MCHC 32.1, RDW Std Deviation 45.0 H, RDW Coeff of Rodrigue 12.9, Plt Count 207, MPV 8.8, Immature Gran % (Auto) 0.300, Neut % (Auto) 66.3, Lymph % (Auto) 18.3 L, [place] % (Auto) 10.6 H, Eos % (Auto) 4.1, Baso % (Auto) 0.4, Absolute Neuts (auto) 4.8, Absolute Lymphs (auto) 1.33, Nucleated RBC % 0, Sodium 136, Potassium 4.4, Chloride 107, Carbon Dioxide 26.0, Anion Gap 3 L, BUN 19 H, Creatinine 0.99, Estim Creat Clear Calc 41.03, Est GFR (MDRD) Af Amer 69, Est GFR (MDRD) Non-Af 57 L, BUN/Creatinine Ratio 19.3, Glucose 86, Calcium 8.9, Total Bilirubin 0.60, AST 32, ALT 29, Alkaline Phosphatase 74, Total Protein 6.4, Albumin 2.8 L, Globulin 3.6, Albumin/Globulin Ratio 0.8 L Physical Exam Const alert, oriented x3 and no apparent distress General Appearance: cooperative and comfortable Extremity Extremity Narrative: Left hip no ecchymosis no open wounds positive logroll neurovascular intact compartments soft Assessment & Plan Assessment/Plan (1) Fracture of femoral neck, left, closed: QUALIFIERS: Encounter type: initial encounter Qualified Code(s): S72.002A - Fracture of unspecified part of neck of left femur, initial encounter for closed fracture PLAN: Plan We will plan on definitive surgical fixation left hip hemiarthroplasty 10/08/2023 antibiotics on-call to the OR hold anticoagulation. Surgical time is expected at 13:30 NPO for surgery tomorrow, hold aniticoagulants.
[2023-10-07 14:00] VITALS: BP 122/50; PULSE 69; RESP 13; TEMP 36.8; O2SAT 96
[2023-10-07] MEDS: Acetaminophen 325 MG Tablet 650 MG PO ×2 (15:11→23:10)
[2023-10-07] MEDS: oxyCODONE 5 MG Tablet PO ×2 (15:12→23:10)
[2023-10-07 22:51] VITALS: BP 145/82; PULSE 75; RESP 18; TEMP 37.1; O2SAT 97
[2023-10-07 23:06] VITALS: BP 145/82; PULSE 75
[2023-10-07] MEDS: Metoprolol Tartrate 50 MG Tablet PO (23:06)
[2023-10-07] MEDS: Atorvastatin Calcium 80 MG Tablet PO (23:06)
[2023-10-08] VITALS (18 sets, daily range): BP systolic 109–140; BP diastolic 43–81; PULSE 60–83; RESP 16; TEMP 36.3–36.9; O2SAT 90–99; BMI 31.4; BMI 31.5
[2023-10-08] MEDS: Metoprolol Tartrate 50 MG Tablet PO ×2 (09:06→21:21)
[2023-10-08] MEDS: Losartan Potassium 50 MG Tablet PO ×2 (09:07→21:21)
[2023-10-08] MEDS: Furosemide 20 MG Tablet PO (09:07)
[2023-10-08] MEDS: Folic Acid 1 MG Tablet PO (09:07)
[2023-10-08] MEDS: Famotidine 20 MG Tablet PO (09:07)
[2023-10-08] MEDS: Ferrous Sulfate 325 MG Tablet PO (09:07)
[2023-10-08] MEDS: amLODIPine 10 MG Tablet PO (09:07)
[2023-10-08 09:08] LABS: Absolute Lymphocyte Count 0.78 X10^3/uL (0.83-4.51); Absolute Neutrophil Count 5.8 X10^3/uL (2.0-7.7); Basophil# 0.03 X10^3/uL; Basophil% 0.4 % (0-1); Eosinophil# 0.15 X10^3/uL; Hematocrit 39.7 % (37-47); Lymphocyte # 0.78 X10^3/ul (0.83-4.51); Lymphocyte % 10.5 % (19-41); Mean Corp Hgb Conc 32.7 g/dL (32-36); Mean Corpuscular Volume 94.7 fL (81-99); Mean Platelet Vol. 9.3 fl (6.2-12.0); Monocyte# 0.66 X10^3/uL; Monocyte% 8.9 % (0-10); NRBC Flagged by Analyzer 0 % (0-5); Neutrophil # 5.79 X10^3/uL (2.7-7.7); Neutrophil % 77.9 % (47-70); Platelet Count 195 K/mm3 (150-450); RBC Distribution Width CV 12.9 % (11.6-14.6); RBC Distribution Width SD 44.3 fl (35.1-43.9); Red Blood Count 4.19 M/mm3 (4.2-5.4); White Blood Count 7.4 K/mm3 (4.4-11.0)
[2023-10-08 09:27] LABS: Anion Gap 4 (5-15); BUN 12 mg/dL (7-18); Calcium,Total 8.9 mg/dL (8.5-10.1); Chloride 107 mmol/L (98-107); EST Glomerular Filtration Rate 72 mL/min (>60); Est Glom Filt Rate - Afr Amer 87 mL/min (>60); Estimated Creatinine Clearance 50.75 ml/min; Glucose 93 mg/dL (74-106); Potassium 4.2 mmol/L (3.5-5.1); Sodium Level 137 mmol/L (136-145)
--- NOTE | 2023-10-08 10:26 | PN_ITS ---
Subjective Subjective Patient seen and examined. She was comfortably lying in bed and had no complaints. Pain was well-controlled. He denied any fever, chills, palpitations, dizziness, nausea or vomiting or any other symptoms. Review of systems otherwise negative. She is due for left hip hemiarthroplasty today. Objective Data Objective Data Vital Signs: Vital Signs Temp Pulse Resp BP Pulse Ox O2 Del Method O2 Flow Rate 98.3 F 60 16 109/51 L 94 Room Air 2 10/08/23 10:00 10/08/23 10:00 10/08/23 10:00 10/08/23 10:00 10/08/23 10:00 10/08/23 10:00 10/07/23 08:00 Oxygen Flow Rate (L/min) 2 Oxygen Delivery Method Room Air Weight: 177 lb 11.081 oz Body Mass Index (BMI) 31.4 Intake & Output: Intake and Output for Last 24 Hours 10/06/23 10/07/23 10/08/23 23:59 23:59 23:59 Intake Total 200 / 400 1350 / 1800 600 / 600 Output Total 300 / 450 1750 / 2550 1075 / 1075 Balance -100 / -50 -400 / -750 -475 / -475 Lab / Micro Data 10/08/23 08:48 10/08/23 08:48 Labs: Laboratory Results - last 24 hr 10/07/23 07:00: TSH 1.80 10/08/23 08:48: WBC 7.4, RBC 4.19 L, Hgb 13.0, Hct 39.7, MCV 94.7, MCH 31.0, MCHC 32.7, RDW Std Deviation 44.3 H, RDW Coeff of Rodrigue 12.9, Plt Count 195, MPV 9.3, Immature Gran % (Auto) 0.300, Neut % (Auto) 77.9 H, Lymph % (Auto) 10.5 L, [place] % (Auto) 8.9, Eos % (Auto) 2.0, Baso % (Auto) 0.4, Absolute Neuts (auto) 5.8, Absolute Lymphs (auto) 0.78 L, Nucleated RBC % 0, Sodium 137, Potassium 4.2, Chloride 107, Carbon Dioxide 26.0, Anion Gap 4 L, BUN 12, Creatinine 0.80, Estim Creat Clear Calc 50.75, Est GFR (MDRD) Af Amer 87, Est GFR (MDRD) Non-Af 72, BUN/Creatinine Ratio 15.0, Glucose 93, Calcium 8.9 Physical Exam Const alert, oriented x3, no apparent distress and well nourished General Appearance: cooperative and well developed HEENT normocephalic, head/scalp atraumatic, moist oral mucous membranes and oropharynx normal Eyes PERRL and EOMs intact bilaterally Neck no lymphadenopathy Lymph Lymphatic: no lymphadenopathy noted and no lymphedema noted Resp normal respiratory effort, normal air movement and clear to auscultation bilaterally Resp Narrative: on room air. Cardio regular rate, regular rhythm, S1 normal heart sound, S2 normal heart sound and no murmurs GI normal to inspection, nondistended, normoactive bowel sounds, soft to palpation, non-tender and non-distended Extremity normal capillary refill, no clubbing, cyanosis or edema and no calf tenderness Extremity Narrative: LLE shortened slightly and externally rotated. General Extremity: no tenderness to palpation of joints or extremities Skin General Skin Exam: no breakdown Neuro CN's II-XII intact bilaterally and no focal motor deficits Motor Exam: general weakness Psych thought process normal and cooperative Appearance: appropriate Assessment & Plan Assessment/Plan (1) Fracture of femoral neck, left, closed: QUALIFIERS: Encounter type: initial encounter Qualified Code(s): S72.002A - Fracture of unspecified part of neck of left femur, initial encounter for closed fracture (2) CAD (coronary artery disease): PLAN: Plan #Right femoral neck fracture due to mechanical fall * Imaging showed a left nondisplaced subcapital femoral fracture. Patient is on board. * For left hip hemiarthroplasty today. * On admission, risk stratified. NSQIP criteria is moderate risk. #CAD s/p PCI and stents * stents placed to the right coronary artery and circumflex artery in 2006. * On aspirin. * Plavix held on admission for surgery. * Will resume after surgery. * On metoprolol and valsartan as well as statin #Hypertension: Metoprolol and valsartan as well as amlodipine and Lasix. IV hydralazine as needed #Hyperlipidemia: On statin #GERD: On famotidine #Hypothyroidism: On Synthroid #Pulmonary nodules: Has known pulmonary nodules with most recent CT chest being in September 2023 which showed a 1.5 cm right lower lobe pulmonary nodule the size of which has not changed. DVT prophylaxis: Currently on SCDs. Will need to be started on medication for DVT prophylaxis after surgery. Will defer to surgery about their preference for DVT prophylaxis. Charges/Coding Visit Charges Inpatient E&M: 02474 Subs Hosp L2
--- NOTE | 2023-10-08 12:45 | PRE.ANES_ITS ---
ASA Classification* ASA Classification ASA Classification: 3 Assessment & Plan Anesthesia* Anesthesia Assessment Anesthesia Assessment: Discussed sedation and/or anesthesia options, risks, benefits, and alternatives with patient/parents/legal guardian/POA. Questions invited. The patient/parents/legal guardian/POA seems to understand and agrees to proceed with anesthesia plan. Reviewed the physical assessment, medical history, allergy history and patient home medications list prior to surgery/procedure/anesthetic and documented any changes. Performed airway and anesthesia risk assessments. Anesthesia Type Anesthesia Type: General History Source History Obtained from:: Patient and Chart Anesthesia Focused Assessment* Temperature: 98.3 F Pulse Rate: 60 Blood Pressure: 109/51 Respiratory Rate: 16 Pulse Ox: 94 Oxygen Delivery Method: Room Air Airway Assessment Mouth opens: >3 cm Mallampati Score: III Teeth Condition: Dentures (Dentures are out.) and Full Neck Range of motion (ROM): Limited ROM (Slight decrease in extension.) Pertinent Findings EKG Pertinent Findings:: October 06, 2023. Sinus bradycardia at 59 beats Focused Labs Anesthesia Preop lab: CBC WBC 7.4 K/mm3 (4.4-11.0) 10/08/23 08:48 RBC 4.19 M/mm3 (4.2-5.4) L 10/08/23 08:48 Hgb 13.0 g/dL (12.0-15.0) 10/08/23 08:48 Hct 39.7 % (37-47) 10/08/23 08:48 Plt Count 195 K/mm3 (150-450) 10/08/23 08:48 CHEMISTRY Potassium 4.2 mmol/L (3.5-5.1) 10/08/23 08:48 Sodium 137 mmol/L (136-145) 10/08/23 08:48 Magnesium 2.6 mg/dL (1.6-2.6) 10/06/23 11:50 BUN 12 mg/dL (7-18) 10/08/23 08:48 Creatinine 0.80 mg/dL (0.55-1.02) 10/08/23 08:48 Glucose 93 mg/dL (74-106) 10/08/23 08:48 TSH 1.80 uIU/mL (0.358-3.74) 10/07/23 07:00 COAG PT 13.7 SECONDS (11.7-14.9) 10/06/23 11:50 Pre-Assessment Diagnosis/Proposed Procedure Planned Operative Procedure(s): Hemiarthroplasty of the left hip. Anesthesia History Anesthesia History - no experience: Anesthesia History - no experience Hx Hospitalization Yes 06/16/13 11:01 Any Problems With Anesthesia No 10/07/23 20:50 Cholinesterase deficiency No 10/07/23 20:50 You/Your Family Experience No 10/07/23 20:50 fever (hyperthermia) with Relationship Recent Exposure to Contagious No 10/07/23 20:50 Disease Does patient have nerve No 10/07/23 20:50 stimulator Patient instructed to have No 10/07/23 20:50 device shut off --Does patient have Pacemaker or ICD? When Was Last Pacemaker Check QUESTION #4 FULL TEXT: You/Your Family Experience fever (hyperthermia) with Anesthesia Last Oral Intake Last Oral intake: Last Oral Intake NPO since Meds taken in AM with sips of water? Meds patient instructed to take am of surgery Any additional information?: Yes NPO since: 00:00 Meds taken in AM with sips of water?: Yes PONV PONV - no experience: PONV - no experience Female HX of Motion Sickness HX of N/V After Surgery Non-Smoker Duration of Surgery greater than 60 minutes Number of Risk Factors PONV Score Height & Weight Height & Weight: Anesthesia: Height & Weight Height 5 ft 3 in 10/06/23 15:52 Weight: 80.6 kg 10/08/23 01:02 Body Mass Index (BMI) 31.4 10/08/23 01:02 Respiratory Assessment Respiratory Assessment - no experience: Respiratory Tract Infection Hx - no experience Hx Respiratory Tract Infection No 10/07/23 20:50 STOP Sleep Apnea STOP Sleep Apnea - no experience: STOP Sleep Apnea - no experience Hx Hypertension Yes: ON MEDS 10/06/23 15:52 Hx Sleep Apnea No 10/06/23 15:52 CPAP No 10/06/23 15:52 BIPAP No 10/06/23 15:52 Do you snore loudly (louder No 10/06/23 15:52 than talking or can be heard Do you often feel tired/ No 10/06/23 15:52 fatigued/ sleepy during daytime? Has anyone observed you stop No 10/06/23 15:52 breathing during sleep? STOP Results Negative 10/06/23 15:52 QUESTION #5 FULL TEXT : Do you snore loudly (louder than talking or can be heard through closed doors)? Tobacco Use History Tobacco Use History - no experience: Tobacco Use History - no experience Tobacco Use Smoking Status Never smoker 10/06/23 15:52 Hx Tobacco Use No 10/06/23 15:52 Years Smoking Packs Smoked per Day Smoking Cessation Date was within the last 15 years Hx Smoking Cessation Date Hx Smoking Cessation Counseling Hematologic Medial History Hematologic Hx - no experience: Hematologic Medical Hx - tobacco checkout clerk Hx of Blood Transfusion No 10/06/23 15:52 Hx of Transfusion in last 3 No 10/06/23 15:52 Months Date of Last Transfusion (if within last 3 months) Ever experience any problems No 10/06/23 15:52 with transfusion(s)? Specify any problems Hx of Preganancy in last 3 N/A 10/06/23 15:52 Months Nurse Filling Out Transfusion FSTEINER 10/06/23 15:52 & Questions: Date: 10/06/23 10/06/23 15:52 Time: 15:53 10/06/23 15:52 Patient unable to answer at this time (ie. confused, unrespo /Reproduction History /Reproductive History - no experience: /Reproductive Hx- no experience Hx Now No 10/07/23 20:50 Gestational Age (in weeks): EDC: Hx Hx Para Hx Section SAB No 10/07/23 20:50 Active Medications Active Medications: Current Medications Generic Name Dose Route Start Last Admin Trade Name Freq PRN Reason Stop Dose Admin Acetaminophen 650 mg 10/06/23 15:38 10/07/23 23:10 Acetaminophen 325 Mg Tablet PO 650 mg Q4H PRN PRN Administration Fever, pain 1-12/24 Al Hydrox/Mg Hydrox/Simethicone 30 ml 10/06/23 15:38 Mag /Aluminum/Simeth Wch Udc 30 Ml Oral.Susp PO Q6H PRN PRN Gastric Burning Albuterol Sulfate 2.5 mg 10/06/23 15:38 Albuterol 2.5 Mg/3 Ml Vial.Neb. INHALATION Q2H PRN PRN Dyspnea, wheezing Amlodipine Besylate 10 mg 07/23/24 10:00 10/08/23 09:07 Amlodipine 10 Mg Tablet PO 10 mg DAILY [place] Administration Protocol Aspirin 81 mg 10/07/23 10:00 10/08/23 09:16 Aspirin E.C. 81 Mg Tablet PO Not Given DAILY [place] Atorvastatin Calcium 80 mg 10/06/23 22:00 10/07/23 23:06 Atorvastatin Calcium 80 Mg Tablet PO 80 mg QHS [place] Administration Famotidine 20 mg 10/07/23 10:00 10/08/23 09:07 Famotidine 20 Mg Tablet PO 20 mg DAILY [place] Administration Ferrous Sulfate 325 mg 10/07/23 08:00 10/08/23 09:07 Ferrous Sulfate 325 Mg Tablet PO 325 mg DAILY [place] Administration Folic Acid 1 mg 10/07/23 08:00 10/08/23 09:07 Folic Acid 1 Mg Tablet PO 1 mg DAILYCM [place] Administration Furosemide 20 mg 10/07/23 10:00 10/08/23 09:07 Furosemide 20 Mg Tablet PO 20 mg DAILY [place] Administration Protocol Guaifenesin 20 ml 10/06/23 15:38 Guaifenesin 10 Ml Udc (200mg/10ml) PO Q4H PRN PRN COUGH Hydralazine HCl 10 mg 10/06/23 15:38 Hydralazine 20 Mg/Ml Vial IV Q4H PRN PRN SBP > 160 Protocol Sodium Chloride 250 mls @ 15 mls/hr 10/06/23 15:47 IV .[id number] PRN Additional IVPB Infusion Sodium Chloride 250 mls @ 15 mls/hr 10/06/23 15:47 IV .[id number] PRN Saline Flush Levothyroxine Sodium 88 mcg 10/07/23 06:00 10/08/23 04:54 Levothyroxine 88 Mcg Tablet PO Not Given DAILY@0600 [place] Losartan Potassium 50 mg 10/06/23 22:00 10/08/23 09:07 Losartan Potassium 50 Mg Tablet PO 50 mg BID [place] Administration Melatonin 3 mg 10/06/23 15:38 Melatonin 3 Mg Tablet PO QHS PRN PRN INSOMNIA Metoprolol Tartrate 50 mg 10/06/23 22:00 10/08/23 09:06 Metoprolol Tartrate 50 Mg Tablet PO 50 mg BID [place] Administration Protocol Morphine Sulfate 2 - 4 mg 10/06/23 15:38 Morphine 4 Mg/Ml Syringe IV Q2H PRN PRN Pain Score 4-10 Ondansetron HCl 4 mg 10/06/23 15:38 Ondansetron 4 Mg/2 Ml Vial IV Q8H PRN PRN NAUSEA/VOMITING Oxycodone HCl 5 - 10 mg 10/06/23 15:38 10/07/23 23:10 Oxycodone 5 Mg Tablet PO 5 mg Q4H PRN PRN Administration Pain Score 4-10 Prochlorperazine Edisylate 5 mg 10/06/23 15:38 Prochlorperazine 10 Mg/2 Ml Vial IV Q4H PRN PRN Breakthrough nausea/vomiting Senna/Docusate Sodium 2 tablet 10/06/23 22:00 10/08/23 09:16 Senna/Docusate Sodium 1 Tablet PO Not Given BID [place] Sodium Chloride 10 - 40 ml 10/06/23 15:47 0.9% Saline Lock 10 Ml Syringe IV UD PRN SALINE FLUSH PFSH Medical History Pulmonary nodules Hypothyroidism Obesity GERD (gastroesophageal reflux disease) Endometrial cancer History of non-ST elevation myocardial infarction (NSTEMI) (02/25/07) Essential (primary) hypertension Hyperlipidemia Atherosclerotic heart disease of [place] coronary artery without angina pectoris Home Medications ?Medication ?Instructions ?Recorded ?Last Taken ?Type aspirin 81 mg tablet,delayed 81 mg PO DAILY 06/16/13 10/06/23 History release valsartan 160 mg tablet 160 mg PO BID #180 tabs 03/26/17 10/06/23 Rx atorvastatin 80 mg tablet 80 mg PO QHS #90 tabs 06/06/17 10/05/23 Rx clopidogrel 75 mg tablet 75 mg PO DAILY #90 tabs 06/06/17 10/06/23 Rx ferrous sulfate 325 mg (65 mg 325 mg PO DAILY 06/06/17 10/06/23 History iron) tablet (FerrouSul) amlodipine 10 mg tablet 10 mg PO DAILY #90 tabs 07/16/18 10/06/23 Rx cholecalciferol (vitamin D3) 125 125 mcg PO QWEEK 08/26/19 10/05/23 History mcg (5,000 unit) capsule furosemide 20 mg tablet 20 mg PO DAILY 08/26/19 10/06/23 History levothyroxine 88 mcg tablet 88 mcg PO DAILY 08/26/19 10/06/23 History metoprolol tartrate 50 mg tablet 50 mg PO BID 08/26/19 10/06/23 History famotidine 20 mg tablet (Pepcid) 20 mg PO BID 12/10/21 10/06/23 History folic acid 1 mg tablet 1 mg PO DAILY 10/06/23 10/06/23 History Allergy/AdvReac Type Severity Reaction Status Date / Time No Known Allergies Allergy Verified 10/06/23 11:45 Family History Mother Dementia Son Cancer Lung cancer Family History other Surgical History History of herniorrhaphy History of left heart catheterization (10/2012) History of coronary artery stent placement (02/25/07) Social History household members: none Smoking Status: Never smoker alcohol intake: never substance use type: does not use caffeine: Yes Type: coffee what type of physical activity do you participate in: bicycling frequency: 1-2 times per week duration: 15-30 minutes/day seatbelt use: always do you feel safe at home: Yes Review of Systems (Anesthesia) ROS Narrative System reviewed and no additional complaints, except as documented.
--- NOTE | 2023-10-08 13:30 | FEM._PTH ---
PATIENT: KATE CRENSHAW LOC: [facility] U#:[id number] AGE/SX: 88/F ROOM: [facility]314 RE10/06/[address]: Dr. Fatimah Holliday MD : 1935 BED: 1 DIS: 10/10/2023 SPEC #: [id number] RECD: 10/08/23 16:18 STATUS: ASHUTOSH MOY #: [id number] THEODORA: 10/08/23 13:[address]: Austin Hill DEPT: SURGICAL PATHOLOGY RECD BY: Ryan Davis ENTERED: 10/09/23 08:02 SP TYPE: FEM HEAD OTHR DR: MD Dr. Emy Hernández MD Dr. Mark Tereletsky, DO Dr. Nana Yaa Koram, MD Tissues: Hip, NOS Procedures: Decalcification bone/plaque Surgery Specimen Level IV HEADER OPERATION: Hemiarthroplasty, hip PRE-OP DIAGNOSIS: Left femoral neck fracture TISSUE SUBMITTED: Femoral head MICROSCOPIC DIAGNOSIS Bone and tissue of left hip, total hip resection: Organizing fracture callus. AM: 10/13/2023 MICROSCOPIC DESCRIPTION Slides are reviewed. GROSS DESCRIPTION Received is one container labeled with the patient's name and designated femoral head and tissue. The specimen consists of a vitale femoral head measuring 4.5 x 4.5 x 3.5 cm. The articular surface is smooth. Resection margin is irregular and hemorrhagic. Also present in the specimen container are multiple detached pieces of bone measuring in aggregate 4.5 x 3.5 x 1.0 cm. No soft tissue is identified. Roll Clamp Operator sections are submitted in three cassettes as follows: 1 - soft tissue, 2 and 3 - femoral head after decalcification. NIKOLAS/ 10/09/2023 TC:5 CPT: 63708, 33960
[2023-10-08] MEDS: TRANEXAMIC ACID 2,000 MG in 0.9% Normal Saline (100mL Bag) 100 ML 440 MG IV (14:00)
--- NOTE | 2023-10-08 15:47 | PCM.POST.ANE ---
Anesthesia: Postop Eval I Current Vital Signs Temperature: 98.2 F Pulse Rate: 76 Blood Pressure: 125/68 Respiratory Rate: 16 Pulse Ox: 96 Oxygen Delivery Method: Room Air Assessment Airway patent: Yes Spontaneous unlabored respirations: Yes Mental status: Awake and Calm nausea: No Vomiting: No Anesthesia Complication: No Fluid Hydration Crystalloid volume administer (ml): 1,000 Total IV fluid infused: 1,000 Progress Note Anesthesia document: Postop Eval 1 completed: Yes
--- NOTE | 2023-10-08 15:49 | RAD_ITS ---
INDICATION: Post Op -- AP both hips on single benja/lateral of op hip PACU EXAMINATION/TECHNIQUE: X-RAY - XR Hip Unilateral with Pelvis when performed; 2-3 Views COMPARISON: Prior study dated: 10/06/2023 FINDINGS: There is now a left hip hemiarthroplasty. The femoral head component articulates appropriately with the acetabulum. No periprosthetic lucency or fracture. Overlying skin emerald with soft tissue gas noted. The right hip is well aligned with mild degenerative change. RAD/Hip Min 2 Views (Portable) IMPRESSION: Left hip hemiarthroplasty in typical positioning and alignment. Electronically Signed: Aubrey Mendoza MD at 16:11 EDT ,
--- NOTE | 2023-10-08 15:49 | PCM.OP.BLANK ---
Operative Report Date of Procedure: 10/08/23 Preoperative diagnosis: Left hip femoral neck fracture displaced Postoperative diagnosis: Same Procedure: Left hip hemiarthroplasty Implants: [place] Accolade II stem size 5 132 degree neck angle 0 neck length 50 mm outer diameter bipolar head Anesthesia: General l EBL: 225 cc Complications: None Condition: Stable to PACU Indication for procedure: This is a 88-year-old female patient had a ground-level fall injuring her left hip thorough discussion was had with the patient and her family in regards to surgical options including percutaneous screw fixation versus hip hemiarthroplasty patient and family wish to proceed with hip hemiarthroplasty. plans for definitive hemiarthroplasty were discussed including risks benefits and alternatives of the procedure were reviewed with the patient including risk of bleeding infection nerve artery tissue damage need for further surgery continue pain postoperative hip precaution restrictions leg length discrepancy and dislocation. Procedure: Patient was met in the preoperative holding area once again the operative extremity was identified by both patient and physician and was marked. Patient was met by anesthesia and brought to the operating room where anesthesia was started . The patient was then positioned in the lateral decubitus position on a well-padded pegboard with an axillary roll. All bony prominences were checked and padded. The patient was prepped and draped in the usual sterile fashion. A timeout was called to ensure the proper patient procedure and extremity were being contemplated. Anatomic landmarks were palpated and marked for a standard posterior lateral approach. A timeout was called to ensure the proper patient procedure and extremity were being contemplated. A 10 blade scalpel was used to make a posterior incision through the skin and subcutaneous tissue. In retractors were used and electrocautery was used to maintain meticulous hemostasis and dissect full-thickness flaps until the gluteal fascia was reached. The gluteal fascia was incised in line with the gluteal fibers. The bursal tissue was then freed from the underside and a Charnley retractor was placed. The fatpad was elevated off of the external rotators with electrocautery and the external rotators were dissected off of the greater trochanter including the piriformis and were tagged with #1 Ethibond for later repair. The joint capsule opened with posterior trapdoor technique. A femoral neck cutting guide was used to aura the neck with a Bovie and an oscillating saw was used to complete the femoral neck cut. the fracture was visualized and with the use of a corkscrew and a skid the femoral head was removed and sized. We then trialed with the matching sizes . Hohmann was placed around the lesser trochanter. A femoral elevator was used. As well as a pointed wide Hohmann around the lesser trochanter and a Hohmann to help retract the gluteus medius. A box chisel was used to remove excess lateral neck followed by a canal finder and a lateralizing reamer. This was followed by sequential broaches. Attention was made of the version within the canal. Once the final broach was seated we then trialed and reduced the hip it was determined that a 132 degree neck angle with a 0 neck length was the appropriate size. We then checked stability with shuck testing as well as flexion and interminal rotation then proceeded with hip extension and checked leg lengths at the knees and heels. At this point trials were removed. The femoral stem was inserted. We re-trialed and then proceeded to impact the femoral head onto the Harsh taper. We then surgically reduce the hip check stability again and leg lengths and were satisfied. irricept rinse was allowed to sit for 1 minutes while everyone changed their gloves. Thorough irrigation was performed. Followed by closure of the external rotators with #2 FiberWire followed by closure of gluteal fascia with #1 Ethibond. 0 Vicryl fat stitches and 2-0 Vicryl subcutaneous stitches and emerald in the skin. Dressing was applied in the form of silverlon dressing and an abduction pillow was placed. Patient tolerated the procedure well there was no intraoperative complications all counts were correct and the patient was brought back to the PACU in stable condition
[2023-10-08] MEDS: Calcium Carbonate 500 MG Tablet PO (17:39)
[2023-10-08] MEDS: 0.9% Normal Saline (1000mL) 1,000 ML 125 ML IV (17:43)
[2023-10-08] MEDS: Cefazolin 2 GM in 0.9% Normal Saline (100mL Bag) 100 ML IV (21:19)
[2023-10-08] MEDS: Atorvastatin Calcium 80 MG Tablet PO (21:21)
[2023-10-08] MEDS: Senna/Docusate Sodium 1 Tablet 2 TABLET PO (21:21)
[2023-10-08] MEDS: oxyCODONE 5 MG Tablet PO (21:25)
--- NOTE | 2023-10-08 22:29 | POSTOPAN2_ITS ---
Anesthesia Postop Eval I Sum Postop Eval Completion status Anesthesia document: Postop Eval 1 completed: Yes Anesthesia Postop Eval I Summary Anesthesia Postop Eval I Summary: Anesthesia Postop Eval I: Assessment Summary Airway patent Yes 10/08/23 15:48 ENGINEERING AND DEVELOPMENT DIRECTOR.[email or web address] Spontaneous unlabored Yes 10/08/23 15:48 ENGINEERING AND DEVELOPMENT DIRECTOR.LETTY respirations Mental status Awake,Calm 10/08/23 15:48 ENGINEERING AND DEVELOPMENT DIRECTOR.[email or web address] nausea No 10/08/23 15:48 ENGINEERING AND DEVELOPMENT DIRECTOR.[email or web address] Vomiting No 10/08/23 15:48 ENGINEERING AND DEVELOPMENT DIRECTOR.[email or web address] Anesthesia Postop Eval I: Fluid Summary Crystalloid volume administer 1,000 10/08/23 15:48 ENGINEERING AND DEVELOPMENT DIRECTOR.SKOBY (ml) Colloids volume administered ( ml) Blood Product volume administered (ml) Total IV fluid infused 1,000 10/08/23 15:48 ENGINEERING AND DEVELOPMENT DIRECTOR.[email or web address] Anesthesia Postop Eval I: Summary Notes Anesthesia Complication No 10/08/23 15:48 ENGINEERING AND DEVELOPMENT DIRECTOR.LETTY Anesthesia Complication Comment: Post-operative progress note Anesthesia: Postop Eval II Evaluation Mental status: Awake and Calm Pain Level: 2 nausea: No Vomiting: No
--- NOTE | 2023-10-08 22:29 | PCM.POSTANE2 ---
Anesthesia Postop Eval I Sum Postop Eval Completion status Anesthesia document: Postop Eval 1 completed: Yes Anesthesia Postop Eval I Summary Anesthesia Postop Eval I Summary: Anesthesia Postop Eval I: Assessment Summary Airway patent Yes 10/08/23 15:48 [email or web address] Spontaneous unlabored Yes 10/08/23 15:48 [email or web address] respirations Mental status Awake,Calm 10/08/23 15:48 [email or web address] nausea No 10/08/23 15:48 [email or web address] Vomiting No 10/08/23 15:48 [email or web address] Anesthesia Postop Eval I: Fluid Summary Crystalloid volume administer 1,000 10/08/23 15:48 [email or web address] (ml) Colloids volume administered ( ml) Blood Product volume administered (ml) Total IV fluid infused 1,000 10/08/23 15:48 [email or web address] Anesthesia Postop Eval I: Summary Notes Anesthesia Complication No 10/08/23 15:48 [email or web address] Anesthesia Complication Comment: Post-operative progress note Anesthesia: Postop Eval II Evaluation Mental status: Awake and Calm Pain Level: 2 nausea: No Vomiting: No
[2023-10-09] MEDS: 0.9% Saline Lock 10 ML Syringe IV (01:17)
[2023-10-09] MEDS: Ketorolac 15 MG/ML Vial IV (01:17)
[2023-10-09] MEDS: 0.9% Normal Saline (1000mL) 1,000 ML 125 ML IV (01:20)
[2023-10-09 01:23] VITALS: BMI 31.5
[2023-10-09] MEDS: Cefazolin 2 GM in 0.9% Normal Saline (100mL Bag) 100 ML IV ×2 (02:31→08:11)
[2023-10-09] MEDS: oxyCODONE 5 MG Tablet PO ×2 (05:06→21:19)
[2023-10-09] MEDS: Levothyroxine 88 MCG Tablet PO (05:06)
[2023-10-09 05:23] VITALS: BP 146/67; PULSE 73; RESP 16; TEMP 36.6; O2SAT 95; BMI 31.5
[2023-10-09 06:00] VITALS: BMI 31.4
[2023-10-09 07:35] LABS: Absolute Lymphocyte Count 0.68 X10^3/uL (0.83-4.51); Absolute Neutrophil Count 11.3 X10^3/uL (2.0-7.7); Basophil# 0.02 X10^3/uL; Basophil% 0.2 % (0-1); Hematocrit 33.9 % (37-47); Hemoglobin 11.1 g/dL (12.0-15.0); Lymphocyte # 0.68 X10^3/ul (0.83-4.51); Lymphocyte % 5.3 % (19-41); Mean Corp Hgb Conc 32.7 g/dL (32-36); Mean Corpuscular Hgb 30.5 pg (27.0-32.0); Mean Corpuscular Volume 93.1 fL (81-99); Mean Platelet Vol. 9.5 fl (6.2-12.0); Monocyte# 0.78 X10^3/uL; NRBC Flagged by Analyzer 0 % (0-5); Neutrophil # 11.34 X10^3/uL (2.7-7.7); Neutrophil % 87.9 % (47-70); Platelet Count 223 K/mm3 (150-450); RBC Distribution Width CV 12.7 % (11.6-14.6); RBC Distribution Width SD 43.4 fl (35.1-43.9); Red Blood Count 3.64 M/mm3 (4.2-5.4); White Blood Count 12.9 K/mm3 (4.4-11.0)
[2023-10-09] MEDS: Famotidine 20 MG Tablet PO (08:06)
[2023-10-09 08:07] LABS: Anion Gap 7 (5-15); BUN 17 mg/dL (7-18); BUN/Creat Ratio 18.7 RATIO (10-20); Calcium,Total 8.3 mg/dL (8.5-10.1); Chloride 103 mmol/L (98-107); Creatinine, Serum 0.91 mg/dL (0.55-1.02); EST Glomerular Filtration Rate 62 mL/min (>60); Est Glom Filt Rate - Afr Amer 75 mL/min (>60); Estimated Creatinine Clearance 44.61 ml/min; Glucose 112 mg/dL (74-106); Potassium 4.1 mmol/L (3.5-5.1); Sodium Level 133 mmol/L (136-145)
[2023-10-09] MEDS: Furosemide 20 MG Tablet PO (08:07)
[2023-10-09] MEDS: Calcium Carbonate 500 MG Tablet PO ×3 (08:07→18:04)
[2023-10-09] MEDS: Senna/Docusate Sodium 1 Tablet 2 TABLET PO ×2 (08:07→21:15)
[2023-10-09] MEDS: Folic Acid 1 MG Tablet PO (08:07)
[2023-10-09] MEDS: Aspirin E.C. 81 MG Tablet PO (08:07)
[2023-10-09 08:08] VITALS: PULSE 66
[2023-10-09] MEDS: Ferrous Sulfate 325 MG Tablet PO (08:08)
[2023-10-09] MEDS: amLODIPine 10 MG Tablet PO (08:08)
[2023-10-09] MEDS: Metoprolol Tartrate 50 MG Tablet PO ×2 (08:08→21:15)
[2023-10-09] MEDS: Losartan Potassium 50 MG Tablet PO ×2 (08:08→21:15)
[2023-10-09] MEDS: Cholecalciferol (VIT D3) 25 MCG TABLET (1,000 UNITS) PO (08:08)
[2023-10-09] MEDS: APIXABAN 2.5 MG TABLET (WCH) PO ×2 (08:08→21:15)
[2023-10-09 08:17] VITALS: BP 138/59; PULSE 66; RESP 18; TEMP 36.9; O2SAT 94
--- NOTE | 2023-10-09 09:46 | PN_ITS ---
Subjective Subjective Patient seen and examined. She had no active complaints. Pain was well controlled. Review of systems is otherwise negative. Today is POD 1 for left hip hemiarthroplasty. Objective Data Objective Data Vital Signs: Vital Signs Temp Pulse Resp BP Pulse Ox O2 Del Method O2 Flow Rate 98.5 F 66 18 138/59 H 94 Room Air 2 10/09/23 08:17 10/09/23 08:17 10/09/23 08:17 10/09/23 08:17 10/09/23 08:17 10/09/23 08:17 10/08/23 17:23 Oxygen Flow Rate (L/min) 2 Oxygen Delivery Method Room Air Weight: 177 lb 11.081 oz Body Mass Index (BMI) 31.4 Intake & Output: Intake and Output for Last 24 Hours 10/07/23 10/08/23 10/09/23 23:59 23:59 23:59 Intake Total 1350 / 1800 1830 / 1830 1820.42 / 1820.42 Output Total 1750 / 2550 2075 / 2325 550 / 550 Balance -400 / -750 -245 / -495 1270.42 / 1270.42 Lab / Micro Data 10/09/23 06:52 10/09/23 06:52 Labs: Laboratory Results - last 24 hr 10/09/23 06:52: WBC 12.9 H, RBC 3.64 L, Hgb 11.1 L, Hct 33.9 L, MCV 93.1, MCH 30.5, MCHC 32.7, RDW Std Deviation 43.4, RDW Coeff of Rodrigue 12.7, Plt Count 223, MPV 9.5, Immature Gran % (Auto) 0.600, Neut % (Auto) 87.9 H, Lymph % (Auto) 5.3 L, Parker % (Auto) 6.0, Eos % (Auto) 0.0, Baso % (Auto) 0.2, Absolute Neuts (auto) 11.3 H, Absolute Lymphs (auto) 0.68 L, Nucleated RBC % 0, Sodium 133 L, Potassium 4.1, Chloride 103, Carbon Dioxide 23.0, Anion Gap 7, BUN 17, Creatinine 0.91, Estim Creat Clear Calc 44.61, Est GFR (MDRD) Af Amer 75, Est GFR (MDRD) Non-Af 62, BUN/Creatinine Ratio 18.7, Glucose 112 H, Calcium 8.3 L Radiography Diagnostic Testing: Radiology Impression Hip X-Ray 10/08/23 15:49 IMPRESSION: Left hip hemiarthroplasty in typical positioning and alignment. Electronically Signed: Aubrey Mendoza MD at 16:11 EDT Reading Location ID and State: [address] [place] [address] Tel , Service support , Physical Exam Const alert, oriented x3, no apparent distress, healthy appearing and well nourished General Appearance: cooperative, well kempt and well developed Orientation / Consciousness: awake, oriented to person, oriented to place and oriented to time HEENT normocephalic, head/scalp atraumatic, moist oral mucous membranes and oropharynx normal Eyes PERRL, EOMs intact bilaterally and conjunctivae normal Neck no lymphadenopathy, supple, no JVD, thyroid normal and no carotid bruits General: trachea midline Lymph Lymphatic: no lymphadenopathy noted and no lymphedema noted Resp normal respiratory effort, normal air movement, no retractions, no use of accessory muscles and clear to auscultation bilaterally Resp Narrative: on room air. Auscultation: Negative for rales, rhonchi or wheezes Cardio regular rate, regular rhythm, S1 normal heart sound, S2 normal heart sound, no murmurs, no rub and no gallops GI normal to inspection, nondistended, normoactive bowel sounds, soft to palpation, non-tender and non-distended Extremity normal capillary refill, no clubbing, cyanosis or edema and no calf tenderness Extremity Narrative: intact dressing over right hip General Extremity: no tenderness to palpation of joints or extremities Skin no rashes or lesions noted General Skin Exam: no breakdown Neuro oriented x3, CN's II-XII intact bilaterally, moves all extremities, no focal motor deficits and no sensory deficits noted Sensorium / Orientation: awake and alert Speech: speech normal Motor Exam: general weakness Psych thought process normal, cooperative and affect normal Appearance: appropriate Assessment & Plan Assessment/Plan (1) Fracture of femoral neck, left, closed: QUALIFIERS: Encounter type: initial encounter Qualified Code(s): S72.002A - Fracture of unspecified part of neck of left femur, initial encounter for closed fracture (2) CAD (coronary artery disease): PLAN: Plan #Left femoral neck fracture due to mechanical fall * Imaging showed a left nondisplaced subcapital femoral fracture. Patient is on board. * s/p left hip hemiarthroplasty. Today is POD 1. * incentive spirometry * on PO tylenol, PO oxycodone and IV morphine prn for pain * PT/OT On board. Fall precautions * #CAD s/p PCI and stents * stents placed to the right coronary artery and circumflex artery in 2006. * On aspirin. * resume plavix * On metoprolol and valsartan as well as statin #Hypertension: Metoprolol and valsartan as well as amlodipine and Lasix. IV hydralazine as needed #Hyperlipidemia: On statin #GERD: On famotidine #Hypothyroidism: On Synthroid #Pulmonary nodules: Has known pulmonary nodules with most recent CT chest being in September 2023 which showed a 1.5 cm right lower lobe pulmonary nodule the size of which has not changed. DVT prophylaxis:on eliquis 5mg bid per ortho Disposition: awaiting placement Charges/Coding Visit Charges Inpatient E&M: 71738 Subs Hosp L2
--- NOTE | 2023-10-09 11:02 | PCM.PN.ORT ---
Subjective Subjective Seen and examined. Doing well pain controlled. No fevers chills nausea vomiting shortness of breath or chest pain. She has gone up to the bathroom without difficulty or lightheadedness however has not done physical therapy as of yet. Objective Data Objective Data Vital Signs: Vital Signs Temp Pulse Resp BP Pulse Ox O2 Del Method O2 Flow Rate 98.5 F 66 18 138/59 H 94 Room Air 2 10/09/23 08:17 10/09/23 08:17 10/09/23 08:17 10/09/23 08:17 10/09/23 08:17 10/09/23 08:17 10/08/23 17:23 Oxygen Flow Rate (L/min) 2 Oxygen Delivery Method Room Air Weight: 177 lb 11.081 oz Body Mass Index (BMI) 31.4 Intake & Output: Intake and Output for Last 24 Hours 10/07/23 10/08/23 10/09/23 23:59 23:59 23:59 Intake Total 1350 / 1800 1830 / 1830 1967.17 / 1967.17 Output Total 1750 / 2550 2075 / 2325 550 / 550 Balance -400 / -750 -245 / -495 1417.17 / 1417.17 Lab / Micro Data 10/09/23 06:52 10/09/23 06:52 Labs: Laboratory Results - last 24 hr 10/09/23 06:52: WBC 12.9 H, RBC 3.64 L, Hgb 11.1 L, Hct 33.9 L, MCV 93.1, MCH 30.5, MCHC 32.7, RDW Std Deviation 43.4, RDW Coeff of Rodrigue 12.7, Plt Count 223, MPV 9.5, Immature Gran % (Auto) 0.600, Neut % (Auto) 87.9 H, Lymph % (Auto) 5.3 L, [place] % (Auto) 6.0, Eos % (Auto) 0.0, Baso % (Auto) 0.2, Absolute Neuts (auto) 11.3 H, Absolute Lymphs (auto) 0.68 L, Nucleated RBC % 0, Sodium 133 L, Potassium 4.1, Chloride 103, Carbon Dioxide 23.0, Anion Gap 7, BUN 17, Creatinine 0.91, Estim Creat Clear Calc 44.61, Est GFR (MDRD) Af Amer 75, Est GFR (MDRD) Non-Af 62, BUN/Creatinine Ratio 18.7, Glucose 112 H, Calcium 8.3 L Radiography Diagnostic Testing: Radiology Impression Hip X-Ray 10/08/23 15:49 IMPRESSION: Left hip hemiarthroplasty in typical positioning and alignment. Electronically Signed: Aubrey Mendoza MD at 16:11 EDT Reading Location ID and State: [facility] / [place] Tel , Service support , Physical Exam Const alert, oriented x3 and no apparent distress General Appearance: cooperative Extremity Extremity Narrative: Left hip dressing clean dry intact compartments soft neurovascular intact left lower extremity EHL tibialis anterior gastrocsoleus intact sensation light touch to all 4 pedal pulse Assessment & Plan Assessment/Plan (1) S/P hip hemiarthroplasty: PLAN: Plan Postop day #1 left hip hemiarthroplasty PT OT weightbearing as tolerated precautions DVT prophylaxis SCDs STONEY hose Eliquis 2.5 mg twice daily for 3 weeks Hold Plavix until completion of Eliquis then resume if medically reasonable. Pain control oxycodone 5 to 10 mg every 4 hours as needed pain Tylenol 1000 mg every 6 hours Dressing to be undisturbed for 1 week then may remove prior to for shower after which point it should be cleaned daily with warm water and antibacterial soap and replaced with a dry dressing Follow-up in the office 2 weeks Patient would likely benefit from transitional care prior to returning home. call with any questions or concern.
[2023-10-09 13:00] VITALS: BMI 31.5
--- NOTE | 2023-10-09 14:01 | CASEMGMT ---
Addendum entered by Gege Weir 10/09/23 16:00: [facility] has accepted. SW updated. Gege Weir DC Planning Asst. Original Note: Discharge Planning Referral sent via [facility] to [facility]. Gege Weir DC Planning Asst.
--- NOTE | 2023-10-09 14:12 | CASEMGMT ---
Social Work- SW met with pt who states that she plan to go to [facility] and declines list of SNF providers. PRESLEY advised. CALIXTO Shields
[2023-10-09 17:00] VITALS: BP 134/43; PULSE 97; RESP 18; TEMP 36.6; O2SAT 97; BMI 31.5
[2023-10-09 21:10] VITALS: BP 145/65; PULSE 72; RESP 16; TEMP 36.7; O2SAT 95
[2023-10-09 21:15] VITALS: BP 145/65; PULSE 71
[2023-10-09] MEDS: Atorvastatin Calcium 80 MG Tablet PO (21:15)
[2023-10-09 21:23] VITALS: BMI 31.5
[2023-10-10] MEDS: Acetaminophen 325 MG Tablet 650 MG PO (00:04)
[2023-10-10] MEDS: MELATONIN 3 MG TABLET PO (00:04)
[2023-10-10] MEDS: oxyCODONE 5 MG Tablet PO ×2 (01:29→10:32)
[2023-10-10 02:03] VITALS: BP 115/56; PULSE 67; RESP 16; TEMP 36.8; O2SAT 94
[2023-10-10] MEDS: Levothyroxine 88 MCG Tablet PO (05:23)
[2023-10-10 06:00] VITALS: BMI 31.3
[2023-10-10 07:13] LABS: Absolute Lymphocyte Count 0.91 X10^3/uL (0.83-4.51); Absolute Neutrophil Count 6.4 X10^3/uL (2.0-7.7); Basophil# 0.03 X10^3/uL; Basophil% 0.4 % (0-1); Eosinophils% 1.2 % (0-5); Hematocrit 34.3 % (37-47); Lymphocyte # 0.91 X10^3/ul (0.83-4.51); Lymphocyte % 11.1 % (19-41); Mean Corp Hgb Conc 32.1 g/dL (32-36); Mean Corpuscular Hgb 30.1 pg (27.0-32.0); Mean Corpuscular Volume 93.7 fL (81-99); Mean Platelet Vol. 9.4 fl (6.2-12.0); Monocyte# 0.72 X10^3/uL; Monocyte% 8.8 % (0-10); NRBC Flagged by Analyzer 0 % (0-5); Neutrophil % 77.9 % (47-70); Platelet Count 210 K/mm3 (150-450); RBC Distribution Width CV 12.9 % (11.6-14.6); RBC Distribution Width SD 44.3 fl (35.1-43.9); Red Blood Count 3.66 M/mm3 (4.2-5.4); White Blood Count 8.2 K/mm3 (4.4-11.0)
[2023-10-10 07:40] LABS: Anion Gap 3 (5-15); BUN 17 mg/dL (7-18); BUN/Creat Ratio 21.1 RATIO (10-20); Chloride 107 mmol/L (98-107); Creatinine, Serum 0.81 mg/dL (0.55-1.02); EST Glomerular Filtration Rate 72 mL/min (>60); Est Glom Filt Rate - Afr Amer 87 mL/min (>60); Estimated Creatinine Clearance 49.99 ml/min; Glucose 87 mg/dL (74-106); Potassium 3.9 mmol/L (3.5-5.1); Sodium Level 137 mmol/L (136-145)
[2023-10-10 07:49] VITALS: O2SAT 93
[2023-10-10 08:00] VITALS: BP 144/60; PULSE 86; RESP 16; TEMP 36.6; O2SAT 94
[2023-10-10] MEDS: Calcium Carbonate 500 MG Tablet PO ×2 (08:31→11:38)
[2023-10-10] MEDS: Famotidine 20 MG Tablet PO (08:31)
[2023-10-10] MEDS: APIXABAN 2.5 MG TABLET (WCH) PO (08:31)
[2023-10-10] MEDS: Losartan Potassium 50 MG Tablet PO (08:31)
[2023-10-10 08:32] VITALS: PULSE 86
[2023-10-10] MEDS: Senna/Docusate Sodium 1 Tablet 2 TABLET PO (08:32)
[2023-10-10] MEDS: Aspirin E.C. 81 MG Tablet PO (08:32)
[2023-10-10] MEDS: Metoprolol Tartrate 50 MG Tablet PO (08:32)
[2023-10-10] MEDS: Furosemide 20 MG Tablet PO (08:32)
[2023-10-10] MEDS: Folic Acid 1 MG Tablet PO (08:32)
[2023-10-10] MEDS: Cholecalciferol (VIT D3) 25 MCG TABLET (1,000 UNITS) PO (08:32)
[2023-10-10] MEDS: amLODIPine 10 MG Tablet PO (08:32)
[2023-10-10] MEDS: Ferrous Sulfate 325 MG Tablet PO (08:32)
--- NOTE | 2023-10-10 11:06 | TREXTCAR_ITS ---
Diet Diet Order/Speech Therapy: 10/08/23 17:38 Diet: Regular - General Food consistency:: Regular Liquid Consistency:: Regular/Thin Routine Orders/Code Status Enema Type: Fleetz Enema Frequency: Daily PRN Suppository Frequency: Daily PRN O2 Frequency: PRN Keep PO Greater than or Equal to (%): 90 Wound(s) rt knee: Wound Type: Abrasion LEFT HIP: Wound Type: Surgical Incision Therapies Weight Bearing: Weight bearing as tolerated Physical Therapy: Eval and Treat Occupational Therapy: Eval and Treat Problem/Diagnosis (1) S/P hip hemiarthroplasty: Status: Acute Code(s): Z96.649 - Presence of unspecified artificial hip joint Plan #Left femoral neck fracture due to mechanical fall * Imaging showed a left nondisplaced subcapital femoral fracture. Patient is on board. * s/p left hip hemiarthroplasty. Today is POD 1. * incentive spirometry * on PO tylenol, PO oxycodone and IV morphine prn for pain * PT/OT On board. Fall precautions * #CAD s/p PCI and stents * stents placed to the right coronary artery and circumflex artery in 2006. * On aspirin. * resume plavix * On metoprolol and valsartan as well as statin #Hypertension: Metoprolol and valsartan as well as amlodipine and Lasix. IV hydralazine as needed #Hyperlipidemia: On statin #GERD: On famotidine #Hypothyroidism: On Synthroid #Pulmonary nodules: Has known pulmonary nodules with most recent CT chest being in September 2023 which showed a 1.5 cm right lower lobe pulmonary nodule the size of which has not changed. DVT prophylaxis:on eliquis 5mg bid per ortho Disposition: awaiting placement Allergies/Procedures Done in Hospital Allergies No Known Allergies Allergy (Verified 10/06/23 11:45) Procedures: None Type of Care/Length of Stay Estimated LOS: Convalescent Care Less Than 30 days Type of Care Needed: Skilled Rehab Potential: Fair Prognosis: Fair Additional Orders/Day of Discharge Day of Discharge: 10/10/23 Dietary and Speech Recommendations Dietitian Recommendations/Changes: Continue Regular diet to optimize oral intakes. Discharge Plan Admission Admit Date/Time: 10/06/23 14:25 Primary Reason for Your Visit: left hip fracture s/p left hemiarthroplasty Attending Provider: Fatimah Holliday Primary Care Provider: Emy Werner Consulting Providers: Austin Hill; Katya Saucedo; Tadeo Patino Instructions Patient Instructions: Hip Fx Surg Dc Discharge Orders/Prescriptions Prescriptions: New Eliquis 5 mg Tablet 2.5 mg PO BID 21 Days Qty: 42 0RF oxycodone 5 mg tablet 5 mg PO Q4H PRN (Reason: pain) 3 Days Qty: 18 0RF Continued ferrous sulfate [FerrouSul] 325 mg (65 mg iron) tablet 325 mg PO DAILY atorvastatin 80 mg tablet 80 mg PO QHS Qty: 90 3RF levothyroxine 88 mcg tablet 88 mcg PO DAILY furosemide 20 mg tablet 20 mg PO DAILY cholecalciferol (vitamin D3) 125 mcg (5,000 unit) capsule 125 mcg PO QWEEK metoprolol tartrate 50 mg tablet 50 mg PO BID aspirin 81 MG tablet,delayed release (DR/EC) 81 mg PO DAILY Patient Comments: ANTICOAGULANT famotidine [Pepcid] 20 mg Tablet 20 mg PO BID folic acid 1 mg tablet 1 mg PO DAILY valsartan 160 MG tablet 160 mg PO BID Qty: 180 3RF amlodipine 10 mg tablet 10 mg PO DAILY Qty: 90 3RF Held clopidogrel 75 mg tablet 75 mg PO DAILY Qty: 90 3RF Hold Instructions: Resume on 11/01/23. resume after finishing 3 week course of eliquis 2.5mg bid for DVT prophylaxis Referrals / Follow Up: Emy Werner MD [Primary Care Provider] - Within 1 Week Austin Hill DO [Med Staff - Active Staff] - Within 1 Week Disposition Disposition (needs filled in before D/C Order can be placed): Care Home Facility
--- NOTE | 2023-10-10 11:07 | DS.PCM_ITS ---
Providers Date of Admission: 10/06/23 Date of Discharge: 10/10/23 Primary Care Physician: Dr. Emy Werner MD Consultations 10/06/23 15:38 Consult: Orthopedics Routine Consulting Provider: Austin Hill Reason for Consult: Fall, L hip fracture EMERGENT Consult: No MD Notified: Yes Date Notified: 10/06/23 Time Notified: 14:27 Method of Notification: ED Physician Initiated Reason For Visit: FALL, L HIP FRACTURE Diagnosis Discharge Diagnosis (1) S/P hip hemiarthroplasty: Status: Acute Code(s): Z96.649 - Presence of unspecified artificial hip joint Plan #Left femoral neck fracture due to mechanical fall * Imaging showed a left nondisplaced subcapital femoral fracture. Patient is on board. * s/p left hip hemiarthroplasty. Today is POD 1. * incentive spirometry * on PO tylenol, PO oxycodone and IV morphine prn for pain * PT/OT On board. Fall precautions * #CAD s/p PCI and stents * stents placed to the right coronary artery and circumflex artery in 2006. * On aspirin. * resume plavix * On metoprolol and valsartan as well as statin #Hypertension: Metoprolol and valsartan as well as amlodipine and Lasix. IV hydralazine as needed #Hyperlipidemia: On statin #GERD: On famotidine #Hypothyroidism: On Synthroid #Pulmonary nodules: Has known pulmonary nodules with most recent CT chest being in September 2023 which showed a 1.5 cm right lower lobe pulmonary nodule the size of which has not changed. DVT prophylaxis:on eliquis 5mg bid per ortho Disposition: awaiting placement Medications at Discharge Home Medications aspirin 81 mg tablet,delayed release 81 mg PO DAILY 06/16/13 valsartan 160 mg tablet 160 mg PO BID #180 tabs 03/26/17 atorvastatin 80 mg tablet 80 mg PO QHS #90 tabs 06/06/17 clopidogrel 75 mg tablet 75 mg PO DAILY #90 tabs 06/06/17 ferrous sulfate 325 mg (65 mg iron) tablet (FerrouSul) 325 mg PO DAILY 06/06/17 amlodipine 10 mg tablet 10 mg PO DAILY #90 tabs 07/16/18 cholecalciferol (vitamin D3) 125 mcg (5,000 unit) capsule 125 mcg PO QWEEK 08/26/19 furosemide 20 mg tablet 20 mg PO DAILY 08/26/19 levothyroxine 88 mcg tablet 88 mcg PO DAILY 08/26/19 metoprolol tartrate 50 mg tablet 50 mg PO BID 08/26/19 famotidine 20 mg tablet (Pepcid) 20 mg PO BID 12/10/21 folic acid 1 mg tablet 1 mg PO DAILY 10/06/23 apixaban 5 mg tablet (Eliquis) 2.5 mg (1/2 x 5 mg) PO BID 21 days #42 tabs 10/10/23 oxycodone 5 mg tablet 5 mg PO Q4H PRN pain 3 days #18 tabs 10/10/23 Hospital Course Operations - (left hip hemiarthroplasty) Procedures None Summary of Care Provided Minutes Spent on Discharge: 55 Hospital Course: Patient is an 88-year-old female with a past medical history as outlined was admitted through the ED on 10/06/2023 with a complaint of mechanical fall which occurred the day before admission. She came into the ED where imaging done showed evidence of left subcapital nondisplaced femoral fracture. Pain was fairly well-controlled but exacerbated by movement. She was admitted and managed for debility due to mechanical fall with resultant left hip fracture. Orthopedic surgery was consulted. She had left hip hemiarthroplasty on 10/08/2023. Postop course was uncomplicated and patient did well. She was placed on Eliquis for DVT prophylaxis. Patient remained stable and was discharged to [facility] in [place] on 10/10/2023. She was given a prescription for p.o. oxycodone 5 mg every 4 hours as needed for total of 18 tablets for 3 days. He was also given a prescription for p.o. Eliquis for DVT prophylaxis for 3 weeks. Hair Plavix was held and is to be resumed after she is done with a course of Eliquis. She is follow-up with her primary care doctor and with orthopedic surgery within 1 to 2 weeks. Patient seen and examined prior to discharge. She had no active complaints and felt well. She had an uneventful night. Review of systems otherwise negative. Labs and vitals reviewed. Medication reviewed and reconciled. Physical Exam Const alert, oriented x3, no apparent distress, healthy appearing and well nourished General Appearance: cooperative, comfortable, well kempt and well developed Orientation / Consciousness: awake, oriented to person, oriented to place and oriented to time HEENT normocephalic, head/scalp atraumatic, hearing grossly normal bilaterally, moist oral mucous membranes and oropharynx normal Mouth: oral and palatal mucosa normal Eyes PERRL, EOMs intact bilaterally and conjunctivae normal Neck no lymphadenopathy, supple, no JVD, thyroid normal and no carotid bruits General: trachea midline Lymph Lymphatic: no lymphadenopathy noted and no lymphedema noted Resp normal respiratory effort, normal air movement, no retractions, no use of accessory muscles and clear to auscultation bilaterally Resp Narrative: on room air. Auscultation: Negative for rales, rhonchi or wheezes Cardio regular rate, regular rhythm, S1 normal heart sound, S2 normal heart sound, no murmurs, no rub and no gallops GI normal to inspection, nondistended, normoactive bowel sounds, soft to palpation, non-tender and non-distended Extremity normal capillary refill, no clubbing, cyanosis or edema and no calf tenderness Extremity Narrative: intact dressing over left hip General Extremity: no tenderness to palpation of joints or extremities Skin no rashes or lesions noted General Skin Exam: no breakdown Neuro oriented x3, CN's II-XII intact bilaterally, moves all extremities, no focal motor deficits and no sensory deficits noted Sensorium / Orientation: awake and alert Speech: speech normal Motor Exam: general weakness Psych thought process normal, cooperative and affect normal Appearance: appropriate Weight / BMI Weight Weight: 176 lb 12.8 oz Body Mass Index (BMI) 31.3 ABG / Lab / Microbiology Data 10/10/23 06:43 10/10/23 06:43 Laboratory: Laboratory Results - last 24 hr 10/10/23 06:43: WBC 8.2, RBC 3.66 L, Hgb 11.0 L, Hct 34.3 L, MCV 93.7, MCH 30.1, MCHC 32.1, RDW Std Deviation 44.3 H, RDW Coeff of Rodrigue 12.9, Plt Count 210, MPV 9.4, Immature Gran % (Auto) 0.600, Neut % (Auto) 77.9 H, Lymph % (Auto) 11.1 L, [place] % (Auto) 8.8, Eos % (Auto) 1.2, Baso % (Auto) 0.4, Absolute Neuts (auto) 6.4, Absolute Lymphs (auto) 0.91, Nucleated RBC % 0, Sodium 137, Potassium 3.9, Chloride 107, Carbon Dioxide 27.0, Anion Gap 3 L, BUN 17, Creatinine 0.81, Estim Creat Clear Calc 49.99, Est GFR (MDRD) Af Amer 87, Est GFR (MDRD) Non-Af 72, B UN/Creatinine Ratio 21.1 H, Glucose 87, Calcium 9.0 D/C Instructions Discharge Diet: No restrictions Discharge Activity: Return to Normal Activity Weight Bearing Status: Weight bearing as tolerated Call your doctor if you observe: Fever of 101 or Higher, Dizziness, Swelling in the ankles, Chest pain, Increased palpitations (irregular heartbeat) and Uncontrolled pain Meaningful Use Info Meaningful Use Meaningful Use Diagnoses (Choose all that apply): None applicable Ischemic Stroke Statin Dosing Therapy Reference: STATIN DOSE THERAPY REFERENCE: * Patients > 75 years receive moderate or high dose statin therapy. * Patients 75 years or YOUNGER should receive HIGH intensity statin dose unless contraindicated. You will be required to document reason for non-treatment if statin daily dose does not meet guidelines. HIGH DOSE STATIN THERAPY DAILY Atorvastatin > than or = to 40 mg Rosuvastatin > than or = to 20 mg Amlodipine + Atorvastatin > than or = to 2.5/40 mg Ezetimibe + Simvastatin 10/80 mg Simvastatin 80mg Discharge Plan Admission Admit Date/Time: 10/06/23 14:25 Primary Reason for Your Visit: left hip fracture s/p left hemiarthroplasty Attending Provider: Fatimah Holliday Primary Care Provider: Emy Werner Consulting Providers: Austin Hill; Katya Saucedo; Tadeo Patino Instructions Patient Instructions: Hip Fx Surg Dc Discharge Orders/Prescriptions Prescriptions: New Eliquis 5 mg Tablet 2.5 mg PO BID 21 Days Qty: 42 0RF oxycodone 5 mg tablet 5 mg PO Q4H PRN (Reason: pain) 3 Days Qty: 18 0RF Continued ferrous sulfate [FerrouSul] 325 mg (65 mg iron) tablet 325 mg PO DAILY atorvastatin 80 mg tablet 80 mg PO QHS Qty: 90 3RF levothyroxine 88 mcg tablet 88 mcg PO DAILY furosemide 20 mg tablet 20 mg PO DAILY cholecalciferol (vitamin D3) 125 mcg (5,000 unit) capsule 125 mcg PO QWEEK metoprolol tartrate 50 mg tablet 50 mg PO BID aspirin 81 MG tablet,delayed release (DR/EC) 81 mg PO DAILY Patient Comments: ANTICOAGULANT famotidine [Pepcid] 20 mg Tablet 20 mg PO BID folic acid 1 mg tablet 1 mg PO DAILY valsartan 160 MG tablet 160 mg PO BID Qty: 180 3RF amlodipine 10 mg tablet 10 mg PO DAILY Qty: 90 3RF Held clopidogrel 75 mg tablet 75 mg PO DAILY Qty: 90 3RF Hold Instructions: Resume on 11/01/23. resume after finishing 3 week course of eliquis 2.5mg bid for DVT prophylaxis Referrals / Follow Up: Emy Werner MD [Primary Care Provider] - Within 1 Week Austin Hill DO [Med Staff - Active Staff] - Within 1 Week Disposition Disposition (needs filled in before D/C Order can be placed): [facility] Charges/Coding Visit Charges Inpatient E&M: 97449 Disch Hosp >30min
--- NOTE | 2023-10-10 11:29 | PHA.DC.MR.R ---
Pharmacy [place] Med Reconciliation Pharmacy Service has performed discharge medication reconciliation for this patient upon transfer to [facility]. The patient's discharge medication list was reviewed for discrepancies and discrepancies were resolved. Medications at Discharge Home Medications aspirin 81 mg tablet,delayed release 81 mg PO DAILY 06/16/13 valsartan 160 mg tablet 160 mg PO BID #180 tabs 03/26/17 atorvastatin 80 mg tablet 80 mg PO QHS #90 tabs 06/06/17 clopidogrel 75 mg tablet 75 mg PO DAILY #90 tabs 06/06/17 ferrous sulfate 325 mg (65 mg iron) tablet (FerrouSul) 325 mg PO DAILY 06/06/17 amlodipine 10 mg tablet 10 mg PO DAILY #90 tabs 07/16/18 cholecalciferol (vitamin D3) 125 mcg (5,000 unit) capsule 125 mcg PO QWEEK 08/26/19 furosemide 20 mg tablet 20 mg PO DAILY 08/26/19 levothyroxine 88 mcg tablet 88 mcg PO DAILY 08/26/19 metoprolol tartrate 50 mg tablet 50 mg PO BID 08/26/19 famotidine 20 mg tablet (Pepcid) 20 mg PO BID 12/10/21 folic acid 1 mg tablet 1 mg PO DAILY 10/06/23 apixaban 5 mg tablet (Eliquis) 2.5 mg (1/2 x 5 mg) PO BID 21 days #42 tabs 10/10/23 oxycodone 5 mg tablet 5 mg PO Q4H PRN pain 3 days #18 tabs 10/10/23
--- NOTE | 2023-10-10 11:35 | CASEMGMT ---
Social Work Patient has been accepted to [facility] and discharge order placed for today. Convalescent exemption form completed via [employer] system. Copy made for [facility] medical record, and one for the assisted packet. Gege, Discharge Nurse Leader communicating with patient and nursing facility final discharge arrangements, and verifying transport to the facility. Plan: Discharge skilled level of care under Medicare benefit on a 30 day or less convalescent exemption. No other services requested or indicated. -NATALIE Alexander
--- NOTE | 2023-10-10 11:46 | NURSING ---
attempted to call report to [facility], left voicemail for call back
[2023-10-10 12:01] VITALS: BP 122/68; PULSE 76; RESP 16; TEMP 36.8; O2SAT 98
--- NOTE | 2023-10-10 12:10 | CASEMGMT ---
Discharge Planning Discharge orders, signed med list, covid results, and transport time sent to [facility] via [facility]. Patients friend will transport by car between 1:30-2p. Nursing and SW updated. Patient will update family. Gege Weir DC Planning Asst.
--- NOTE | 2023-10-10 13:33 | NURSING ---
attempted to call report to [facility] twice with no answer
== END 2023-10-10 14:14 | disposition skilled nursing facility (03) | DRG 522 ==
LOC: ED 14:37 → MS3 14:42
PROVIDERS: Anesthesiology; Orthopaedic Surgery; Admitting Provider Family Medicine; Emergency Provider Emergency Medicine; PCP Internal Medicine; Visit Provider Student in an Organized Health Care Education/Training Program
PROC: 0SRS01Z Replacement of Left Hip Joint, Femoral Surface with Metal Synthetic Substitute, Open Approach (ICD-10-PCS; CPT 27125; principal; 2023-10-08 13:10)
DX: S72.012A Unspecified intracapsular fracture of left femur, initial encounter for closed fracture (principal); I27.20 Pulmonary hypertension, unspecified; D50.9 Iron deficiency anemia, unspecified; I10 Essential (primary) hypertension; E03.9 Hypothyroidism, unspecified; I25.10 Atherosclerotic heart disease of native coronary artery without angina pectoris; E78.5 Hyperlipidemia, unspecified; K21.9 Gastro-esophageal reflux disease without esophagitis; W17.81XA Fall down embankment (hill), initial encounter; E66.9 Obesity, unspecified; R53.81 Other malaise; Y93.01 Activity, walking, marching and hiking; Z79.82 Long term (current) use of aspirin; Z79.02 Long term (current) use of antithrombotics/antiplatelets; Z68.31 Body mass index [BMI] 31.0-31.9, adult; Z79.890 Hormone replacement therapy; Z79.899 Other long term (current) drug therapy; Z95.5 Presence of coronary angioplasty implant and graft
CPT/HCPCS: 36415; 73502; 80048; 80053; 80076; 83735; 84443; 85025; 85610; 85730; 86850; 86900; 86901; 87426; 88305; 88311; 93005; 94668; 97162; 97166; 99285; C1776; J7030; A4216; J2405

== ENCOUNTER → 2024-11-09 | Outpatient (CLI) | payer MEDICARE, OTHER, SELFPAY ==
--- NOTE | 2024-11-09 11:38 | BI_ITS ---
EXAM: SCRN MAMM (CAD)W/VEENA BILAT DATE: 11/09/2024 CLINICAL HISTORY: F, Age 89 y/o , SCRN MAMM (CAD)W/VEENA BILAT No family history. TECHNIQUE: SCRN MAMM (CAD)W/VEENA BILAT COMPARISON: Prior exam(s) dated prior study dated September 24, 2023.. FINDINGS: TISSUE DENSITY: There are scattered areas of fibroglandular density. Bilateral Breast Mammographic Findings: No significant masses, calcifications or other abnormalities are identified. Stable asymmetry of breast tissue were more breast tissue is seen in the retroareolar region of the left breast as compared to the right side. Stable bilateral secretory calcifications. No suspicious masses, areas of developing architectural distortion, or suspicious calcifications. There has been no significant interval change. BI/SCRN MAMM (CAD)W/VEENA BILAT IMPRESSION: Stable examination. OVERALL FINAL ASSESSMENT BI-RADS 2: BENIGN RECOMMENDATION: Routine annual follow-up in 1 Year A letter with findings and recommendations will be mailed to the patient. Reading Location: [place]
== END | disposition home or self-care (01) ==
LOC: OPBI 11:36
PROVIDERS: PCP Internal Medicine; Referring Provider Internal Medicine; Visit Provider Internal Medicine
DX: Z12.31 Encounter for screening mammogram for malignant neoplasm of breast (principal)
CPT/HCPCS: 77063; 77067